=== PATIENT | female | born 1935 | race African-American/Black ===

== ENCOUNTER 2016-09-15 13:20 | Emergency (ER) | payer MEDICARE, OTHER ==
[~2016-09-15] VITALS: Ht 160 cm; Wt 79.4 kg
[2016-09-15 14:15] VITALS: BP 103/69
[2016-09-15] MEDS ORDERED: Cephalexin 500mg cap ORAL ONE (14:45)
[2016-09-15] MEDS ORDERED: CEPHALEXIN500 MG ORAL (14:49)
[2016-09-15] MEDS ORDERED: IBUPROFEN600 MG ORAL (14:49)
[2016-09-15] MEDS ORDERED: Tetanus/Diptheria/Pertussis Vaccine 0.5ml Syr IM ONE (15:00)
[2016-09-15 16:05] VITALS: BP 122/77
--- NOTE | 2016-09-15 16:07 | Emergency Room Report ---
History of Present Illness General Chief Complaint: Laceration Source: Patient Present Illness HPI The patient is an 80-year-old female presenting with laceration to the left middle finger. She states that she was using a knife in the kitchen and slipped. This occurred 2 days prior and she has not sought any medical attention. She cleaned the area with peroxide. Pain is now 5/10 dull ache it is worse with movement. She denies any numbness or tingling. She denies any recent bleeding. She denies other symptoms such as F, chills. Last tetanus shot unknown Allergies: Coded Allergies: CODEINE (Verified Allergy, Mild, 10/14/10) Patient History Past Medical History: see triage record Pertinent Family History: none Reviewed Nursing Documentation: PMH: Agreed, PSxH: Agreed Nursing Documentation-PMH Past Medical History: No History, Except For Hx Diabetes: Yes Review of Systems All Other Systems: negative except mentioned in HPI Physical Exam Vital Signs Date Time Temp Pulse Resp B/P Pulse Ox O2 Delivery O2 Flow Rate FiO2 09/15/16 13:37 97.7 71 20 103/69 97 Room Air General Appearance: no apparent distress, alert, GCS 15, non-toxic Head: normocephalic, atraumatic Eyes: bilateral eye PERRL, bilateral eye normal inspection Musculoskeletal: normal range of motion - Full AROM of L 3rd finger, tender - TTP over the laceration Neurologic: alert, oriented x3, responsive, motor strength/tone normal, sensory intact, speech normal Psychiatric: judgement/insight normal, memory normal, mood/affect normal, no suicidal/homicidal ideation Skin: laceration - 1cm linear laceration of the palmar surface of 3rd digit proximal to DIPJ Lymphatic: no adenopathy Medical Decision Making PA Attestation Dr. Norman is my supervising physician. Patient management was discussed with my supervising physician Diagnostic Impression: Primary Impression: Finger laceration Qualified Codes: S61.213A - Laceration without foreign body of left middle finger without damage to nail, initial encounter ER Course The patient is an 80-year-old female presenting with laceration to the left middle finger. Ddx considered include but not limited to fracture, tendon/ligament injury, avulsion, nerve damage, wound infection, among others PE: 1cm linear laceration of the palmar surface of 3rd digit proximal to DIPJ. Full AROM. No bleeding. No erythema. Due to to the laceration being more than 48 hours old, it will not be closed. It is already well approximated. Wound is cleaned with normal saline and Betadine and a sterile dressing applied She is given a tetanus shot She'll be discharged home with prophylactic antibiotics and needs to follow up with primary doctor. ER precautions are given Last Vital Signs Date Time Temp Pulse Resp B/P Pulse Ox O2 Delivery O2 Flow Rate FiO2 09/15/16 14:15 97.7 20 103/69 97 Room Air 09/15/16 13:37 71 Status: improved Disposition: HOME, SELF-CARE Condition: Improved Scripts Cephalexin* (KEFLEX*) 500 Mg Capsule 500 MG ORAL EVERY 12 HOURS, #14 CAP 0 Refills Prov: PAU SNYDER 09/15/16 Ibuprofen* (MOTRIN*) 600 Mg Tablet 600 MG ORAL Q8H Y for For Pain, #30 TAB 0 Refills Prov: PAU SNYDER 09/15/16 Patient Instructions: Laceration Care, Adult, Nonsutured Laceration Care Additional Instructions: I discussed my findings with the patient. All questions and concerns have been answered. Treatment and medication compliance have been addressed. I advised the patient that they need to follow up with PMD in 3-5 days. Return to ED if symptoms worsen, new symptoms arise such as fever, swelling, or redness, or if needed for any reason. Patient verbalized understanding of discharge instructions. PAU SNYDER Sep 15, 2016 16:07
== END 2016-09-15 16:05 | disposition home or self-care (01) ==
LOC: EMR 14:08
DX: S61.213A Laceration without foreign body of left middle finger without damage to nail, initial encounter (principal); W26.0XXA Contact with knife, initial encounter; Y92.010 Kitchen of single-family (private) house as the place of occurrence of the external cause; Z23 Encounter for immunization; E11.9 Type 2 diabetes mellitus without complications; Z88.6 Allergy status to analgesic agent
CPT/HCPCS: 90471; 90715; 96372; 99284

== ENCOUNTER 2016-09-28 13:20 | Emergency (ER) | payer MEDICARE, OTHER ==
[~2016-09-28] VITALS: Ht 160 cm; Wt 79.4 kg
[~2016-09-28 13:20] MED LIST: CEPHALEXIN500 MG ORAL; IBUPROFEN600 MG ORAL
[2016-09-28 14:10] VITALS: BP 116/76
[2016-09-28] MEDS ORDERED: Bacitracin Oint UD TOPIC ONE (14:30)
--- NOTE | 2016-09-28 16:14 | Diagnostic Imaging Report ---
Indications: Cephalgia Technique: Continuous helical CT imaging of the brain was performed with automatic exposure control on a Siemens sensation [address] scanner. Axial and coronal images were reconstructed at 5 mm slice thickness and interval. CTDI volume(s): 70 mGy Total DLP: 1354 mGy-cm Findings: Comparison: None Confluent low attenuation is present in the bilateral periventricular white matter. Ventricles, cisterns, and sulci are diffusely prominent. No evidence of mass or hemorrhage, mass effect, midline shift, hydrocephalus, or increased intracranial pressure. Bone window images are unremarkable. Visualized paranasal sinuses and mastoid air cells are clear. IMPRESSION: No evidence of acute intracranial pathology . Chronic microvascular ischemic changes bilateral cerebral periventricular white matter. Atrophy The CT scanner at [facility] is accredited by the [employer] and the scans are performed using protocols designed to limit radiation exposure to as low as reasonably achievable to attain images of sufficient resolution adequate for diagnostic evaluation.
[2016-09-28] MEDS ORDERED: POTASSIUM CHLO10 ME2 PO (16:29)
[2016-09-28] MEDS ORDERED: NORCO 10/3251 EA ORAL (16:29)
[2016-09-28] MEDS ORDERED: NITROSTAT0.4 M2 SL (17:00)
[2016-09-28] MEDS ORDERED: REPAGLINIDE1 MG PO (17:00)
[2016-09-28] MEDS ORDERED: JANUVIA25 MG ORAL (17:00)
[2016-09-28] MEDS ORDERED: ASPIR 8181 MG ORAL (17:00)
[2016-09-28] MEDS ORDERED: LASIX20 M1 ORAL (17:00)
[2016-09-28] MEDS ORDERED: ATORVASTATIN CA20 MG ORAL (17:00)
[2016-09-28] MEDS ORDERED: GABAPENTIN300 MG ORAL (17:00)
[2016-09-28] MEDS ORDERED: LOSARTAN POTASS50 MG ORAL (17:00)
[2016-09-28] MEDS ORDERED: OMEPRAZOLE40 M1 ORAL (17:00)
[2016-09-28] MEDS ORDERED: AMLODIPINE BESY10 MG ORAL (17:00)
[2016-09-28] MEDS ORDERED: ATENOLOL50 MG ORAL (17:00)
[2016-09-28] MEDS ORDERED: CEPHALEXIN500 MG ORAL (17:19)
[2016-09-28] MEDS ORDERED: BACITRACIN15 GM TOPIC (17:19)
[2016-09-28] MEDS ORDERED: TYLENOL EXTRA500 MG ORAL (17:19)
[2016-09-28 17:35] VITALS: BP 123/78
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
--- NOTE | 2016-09-29 11:25 | Diagnostic Imaging Report ---
Indication: pain Findings: 3 views of the left hand were obtained. Soft tissue irregularity noted about the third digit. Findings consistent with soft tissue injury/laceration. No obvious radiopaque foreign body seen. No definite fracture or malalignment. Bones are osteopenic. Impression: Soft tissue injury
== END 2016-09-28 17:37 | disposition home or self-care (01) ==
LOC: EMR 14:05
DX: S61.213A Laceration without foreign body of left middle finger without damage to nail, initial encounter (principal); Z88.6 Allergy status to analgesic agent; E11.9 Type 2 diabetes mellitus without complications; Z85.51 Personal history of malignant neoplasm of bladder; X58.XXXA Exposure to other specified factors, initial encounter; Y92.9 Unspecified place or not applicable
CPT/HCPCS: 70450; 99284

== ENCOUNTER 2018-01-22 07:47 | Inpatient (IN) | payer MEDICARE, OTHER ==
[~2018-01-22] VITALS: Ht 165.1 cm; Wt 75.7 kg
[~2018-01-22 07:47] MED LIST changes: +AMLODIPINE BESY10 MG ORAL; +ASPIR 8181 MG ORAL; +ATENOLOL50 MG ORAL; +ATORVASTATIN CA20 MG ORAL; +BACITRACIN15 GM TOPIC; +GABAPENTIN300 MG ORAL; +JANUVIA25 MG ORAL; +LASIX20 M1 ORAL; +LOSARTAN POTASS50 MG ORAL; +NITROSTAT0.4 M2 SL; +NORCO 10/3251 EA ORAL; +OMEPRAZOLE40 M1 ORAL; +POTASSIUM CHLO10 ME2 PO; +REPAGLINIDE1 MG PO; +TYLENOL EXTRA500 MG ORAL
[2018-01-22 07:58] VITALS: BP 115/65
[2018-01-22 08:51] LABS: ANION GAP 9 mmol/L (5-15); BLOOD UREA NITROGEN 30 mg/dL (7-18); CALCIUM 10.2 MG/DL (8.5-10.1); CARBON DIOXIDE 26 MMOL/L (21-32); CHLORIDE 105 MMOL/L (98-107); CREATININE 1.3 MG/DL (0.55-1.30); POTASSIUM 4.5 MMOL/L (3.5-5.1); SODIUM 140 MMOL/L (136-145)
[2018-01-22 09:04] LABS: ALANINE AMINOTRANSFERASE 23 U/L (12-78); ALBUMIN 3.3 G/DL (3.4-5.0); ALBUMIN/GLOBULIN RATIO 0.7 (1.0-2.7); ALKALINE PHOSPHATASE 77 U/L (46-116); ASPARTATE AMINO TRANSFERASE 25 U/L (15-37); BILIRUBIN,TOTAL 0.7 MG/DL (0.2-1.0); CKMB 1.4 NG/ML (0.0-3.6); CREATINE KINASE 71 U/L (26-308)
--- NOTE | 2018-01-22 09:09 | Emergency Room Report ---
History of Present Illness General Chief Complaint: Generalized Weakness Source: Patient, EMS Present Illness HPI The patient states she has a history of recurrent lightheadedness and falls. She states she was also seen here previously for intermittent sweating. She states that these symptoms are not new. She presents today because she had an episode of lightheadedness and did fall while she was in the bathroom. She states she hit her head. She also complains of back pain and abdominal pain. She complains of generalized weakness. She denies chest pain or shortness of breath. She denies palpitations. She denies fever or chills. She denies nausea or vomiting. She denies neck pain. She denies headache or blurry vision. She denies weakness. She has no other complaints. Allergies: Coded Allergies: CODEINE (Verified Allergy, Mild, 10/14/10) Patient History Past Medical History: see triage record, DM, other - Bladder CA Social History: Denies: smoking, alcohol use, drug use Last Menstrual Period: na Reviewed Nursing Documentation: PMH: Agreed; PSxH: Agreed Nursing Documentation-PMH Past Medical History: No History, Except For Hx Diabetes: Yes Hx Cancer: Yes - Bladder Review of Systems All Other Systems: negative except mentioned in HPI Physical Exam Vital Signs Date Time Temp Pulse Resp B/P (MAP) Pulse Ox O2 Delivery O2 Flow Rate FiO2 01/22/18 07:42 98.6 90 18 110/72 98 Room Air Sp02 EP Interpretation: reviewed, normal General Appearance: no apparent distress, alert, GCS 15, non-toxic Head: normocephalic, atraumatic Eyes: bilateral eye normal inspection, bilateral eye PERRL ENT: hearing grossly normal, normal pharynx, no angioedema, normal voice Neck: full range of motion, supple/symm/no masses Respiratory: chest non-tender, lungs clear, normal breath sounds, no respiratory distress, no retraction, no accessory muscle use, speaking full sentences Cardiovascular #1: regular rate, rhythm, no edema Gastrointestinal: normal bowel sounds, soft, non-distended, no guarding, no rebound, tenderness - TTP in the LLQ Rectal: deferred Musculoskeletal: back normal, gait/station normal, normal range of motion, non- tender Neurologic: alert, oriented x3, responsive, motor strength/tone normal, sensory intact, speech normal Psychiatric: judgement/insight normal, memory normal, mood/affect normal, no suicidal/homicidal ideation Skin: normal color, no rash, warm/dry, well hydrated Medical Decision Making Diagnostic Impression: Primary Impression: Pyelonephritis Additional Impressions: Fall Compression fracture of L1 lumbar vertebra Compression fracture of L2 ER Course This patient has pyelonephritis. The patient has had 2 falls and given the patient's age I am concerned this patient could decline rapidly. She is given broad-spectrum antibiotics and IV fluids here in the emergency department. The patient also underwent CT of the head, C-spine, T-spine and L-spine. The patient does have compression fracture deformities of L1 and L2. According to the CT report, the acuity is indeterminate. The patient may need to undergo rehabilitation. Given the patient's age, I felt that this patient should be admitted for treatment with IV antibiotics and close monitoring and possible evaluation for rehabilitation for her lumbar spine fractures. Laboratory Tests Test 01/22/18 08:25 01/22/18 09:25 White Blood Count 17.6 K/UL (4.8-10.8) H Red Blood Count 4.09 M/UL (4.20-5.40) L Hemoglobin 11.4 G/DL (12.0-16.0) L Hematocrit 34.2 % (37.0-47.0) L Mean Corpuscular Volume 84 FL (80-99) Mean Corpuscular Hemoglobin 27.9 PG (27.0-31.0) Mean Corpuscular Hemoglobin Concent 33.4 G/DL (32.0-36.0) Red Cell Distribution Width 14.9 % (11.6-14.8) H Platelet Count 302 K/UL (150-450) Mean Platelet Volume 6.8 FL (6.5-10.1) Neutrophils (%) (Auto) % (45.0-75.0) Lymphocytes (%) (Auto) % (20.0-45.0) Monocytes (%) (Auto) % (1.0-10.0) Eosinophils (%) (Auto) % (0.0-3.0) Basophils (%) (Auto) % (0.0-2.0) Differential Total Cells Counted 100 Neutrophils % (Manual) 91 % (45-75) H Lymphocytes % (Manual) 5 % (20-45) L Monocytes % (Manual) 3 % (1-10) Eosinophils % (Manual) 1 % (0-3) Basophils % (Manual) 0 % (0-2) Band Neutrophils 0 % (0-8) Platelet Estimate Adequate Platelet Morphology Normal Prothrombin Time 10.0 SEC (9.30-11.50) Prothrombin Time INR 0.9 (0.9-1.1) PTT 28 SEC (23-33) Sodium Level 140 MMOL/L (136-145) Potassium Level 4.5 MMOL/L (3.5-5.1) Chloride Level 105 MMOL/L (98-107) Carbon Dioxide Level 26 MMOL/L (21-32) Anion Gap 9 mmol/L (5-15) Blood Urea Nitrogen 30 mg/dL (7-18) H Creatinine 1.3 MG/DL (0.55-1.30) Estimate Glomerular Filtration Rate mL/min (>60) Glucose Level 162 MG/DL (74-106) H Calcium Level 10.2 MG/DL (8.5-10.1) H Total Bilirubin 0.7 MG/DL (0.2-1.0) Aspartate Amino Transferase (AST) 25 U/L (15-37) Alanine Aminotransferase (ALT) 23 U/L (12-78) Alkaline Phosphatase 77 U/L (46-116) Total Creatine Kinase 71 U/L (26-308) Creatine Kinase MB 1.4 NG/ML (0.0-3.6) Creatine Kinase MB Relative Index 1.9 Troponin I 0.017 ng/mL (0.000-0.056) Total Protein 7.9 G/DL (6.4-8.2) Albumin 3.3 G/DL (3.4-5.0) L Globulin 4.6 g/dL Albumin/Globulin Ratio 0.7 (1.0-2.7) L Urine Color Pale yellow Urine Appearance Clear Urine pH 6 (4.5-8.0) Urine Specific [place] 1.010 (1.005-1.035) Urine Protein 2+ (NEGATIVE) H Urine Glucose (UA) Negative (NEGATIVE) Urine Ketones Negative (NEGATIVE) Urine Blood 1+ (NEGATIVE) H Urine Nitrite Positive (NEGATIVE) H Urine Bilirubin Negative (NEGATIVE) Urine Urobilinogen Normal MG/DL (0.0-1.0) Urine Leukocyte Esterase 2+ (NEGATIVE) H Urine RBC 0-2 /HPF (0 - 2) Urine WBC 10-15 /HPF (0 - 2) H Urine Squamous Epithelial Cells Few /LPF (NONE/OCC) Urine Bacteria Many /HPF (NONE) H EKG Diagnostic Results Rate: normal Rhythm: NSR ST Segments: no acute changes Rhythm Strip Diag. Results EP Interpretation: yes Rate: 90's Rhythm: NSR, no PVC's, no ectopy CT/MRI/US Diagnostic Results CT/MRI/US Diagnostic Results : Imaging Test Ordered: CT head, C-spine, T-spine, L-spine. Impression See official reports in the electronic medical record. All were unremarkable for acute findings except for the CT lumbar spine which shows compression fractures of L1 and L2 vertebrae. Last Vital Signs Date Time Temp Pulse Resp B/P (MAP) Pulse Ox O2 Delivery O2 Flow Rate FiO2 01/22/18 07:58 99 18 Room Air 01/22/18 07:58 98.6 115/65 99 Disposition: ADMITTED INPATIENT Condition: Serious Referrals: NOT CHOSEN IPA/,REFERRING (PCP) Lauren Mcneill DO Jan 22, 2018 09:09
[2018-01-22 09:14] LABS: INR 0.9 (0.9-1.1)
[2018-01-22 09:17] LABS: HEMATOCRIT 34.2 % (37.0-47.0); HEMOGLOBIN 11.4 G/DL (12.0-16.0); MEAN CORPUSCULAR VOLUME 84 FL (80-99); PLATELET COUNT 302 K/UL (150-450); RED BLOOD COUNT 4.09 M/UL (4.20-5.40); RED CELL DISTRIBUTION WIDTH 14.9 % (11.6-14.8); WHITE BLOOD COUNT 17.6 K/UL (4.8-10.8)
--- NOTE | 2018-01-22 09:30 | Diagnostic Imaging Report ---
Indication: Shortness of breath Technique: One view of the chest Comparison: 11/17/2004 Findings: No acute infiltrates, effusions, or congestion. Tortuous calcified aorta. Normal heart size. Upper mediastinum unremarkable. No significant change Impression: No acute process.
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
[2018-01-22 09:43] LABS: APPEARANCE,URINE CLEAR; BILIRUBIN, URINE NEGATIVE (NEGATIVE); COLOR,URINE PALE YELLOW; GLUCOSE, URINE (UA) NEGATIVE (NEGATIVE); KETONES,URINE NEGATIVE (NEGATIVE); LEUKOCYTE ESTERASE ,URINE 2+ (NEGATIVE); NITRITE,URINE POSITIVE (NEGATIVE); PH,URINE 6 (4.5-8.0); PROTEIN,URINE 2+ (NEGATIVE); UROBILINOGEN,URINE NORMAL MG/DL (0.0-1.0)
--- NOTE | 2018-01-22 09:45 | Diagnostic Imaging Report ---
Indication: Trauma with spine pain Technique: Spiral acquisitions obtained through the cervical spine. No IV contrast utilized. Multiplanar reconstructions were generated. Total dose length product 420.62 mGycm. CTDIvol(s) 20.35 mGy. Dose reduction achieved using automated exposure control. Comparison: none Findings: There is slight image degradation due to motion artifact There is slight reversal of the normal cervical lordosis. Is slight anterior offset of C4 on C5, presumably due to facet arthrosis. Otherwise normal bony alignment. There is fusion, presumably surgical, of the C5, C6, and C7 vertebral bodies. There is degenerative narrowing of the anterior atlantoaxial joint At C2-3, there is broad-based central posterior disc protrusion. This does not result in any significant canal stenosis. At C3-4, there is broad-based central posterior disc protrusion. This results in borderline narrowing of the spinal canal. The neural foramina are preserved. At C4-5, no significant disc bulge or protrusion or spinal stenosis. There is mild to moderate narrowing of the left neural foramen due to facet arthrosis. There is also facet arthrosis on the right. At C5-6, the disc is fused. No significant disc bulge or protrusion or spinal stenosis. At C6-7, the disc is fused. No significant disc bulge or protrusion or spinal stenosis. There is minimal left and mild right neural foraminal stenosis. At C7-T1, there is degenerative disc narrowing. There is moderate bilateral neural foraminal stenosis. No significant disc bulge or protrusion or spinal stenosis. There is abnormal appearance of the left mandibular neck. The appearance is suggestive of motion artifact. There is slightly similar but less striking finding on the contralateral side. The included extra spinal soft tissues are grossly unremarkable. The upper aerodigestive tract is unremarkable Impression: No acute bony trauma Degenerative changes as detailed on a level by level basis above Apparent abnormality of the right mandibular neck. Most on the basis of motion artifact. However, correlation with clinical findings is recommended to exclude mandibular neck fracture. The CT scanner at [facility] is accredited by the [employer] and the scans are performed using protocols designed to limit radiation exposure to as low as reasonably achievable to attain images of sufficient resolution adequate for diagnostic evaluation.
[2018-01-22 09:47] VITALS: BP 135/62
--- NOTE | 2018-01-22 09:50 | Diagnostic Imaging Report ---
Indications: Trauma, back pain Technique: Spiral acquisitions obtained through the lumbar spine. Multiplanar reconstructions were generated. No IV contrast utilized. Total dose length product 417.47 mGycm. CTDIvol(s) 14.88 mGy. Dose reduction achieved using automated exposure control Comparison: none Findings: There is an inferior endplate/wedge compression fracture deformity of the L2 vertebral body. This results in approximately 40% height abdominal anteriorly loss. There is very slight posterior retropulsion of the posterior wall. No definite acute fracture line or paraspinous edema. There is also very slight loss of height of the L1 vertebral body anteriorly, with questionably a tiny cortical break anteriorly. Height loss is estimated 10-20%. No significant paraspinous edema. The remaining vertebral body heights are preserved. The bony alignment is normal except for very slight loss of the normal lumbar lordosis at L2-3 related to the compression injury. The remaining vertebral body heights are preserved. No other acute fractures. At L2-3, there is mild circumferential annular bulge. Despite this and the slight retropulsion, there is no significant spinal stenosis or neural foraminal compromise. There is circumferential annular bulge at L4-5. This, in combination with ligament flavum hypertrophy, results in borderline narrowing of the spinal canal. There is mild neural foraminal narrowing bilaterally, predominantly due to the bulging disc. There is bilateral facet arthrosis. At the remaining disc levels, no significant disc bulge or protrusion, spinal stenosis, or neural foraminal narrowing. There is facet arthrosis at L4-5 and L5-S1 bilaterally Included extra spinal soft tissues are unremarkable. Impression: Positive for compression fracture deformities of L1 and L2, acuity indeterminate. Consider MRI for better characterization of acuity if clinically relevant No other acute bony trauma Mild degenerative changes, as described The CT scanner at [facility] is accredited by the [employer] and the scans are performed using protocols designed to limit radiation exposure to as low as reasonably achievable to attain images of sufficient resolution adequate for diagnostic evaluation.
--- NOTE | 2018-01-22 10:09 | Diagnostic Imaging Report ---
Indication: Pain, status post trauma Technique: Spiral acquisitions obtained through the thoracic spine. No IV contrast utilized. Multiplanar reconstructions were generated. Total dose length product 887 mGycm. CTDIvol(s) 24.82 mGy. Dose reduction achieved using automated exposure control Comparison: none Findings: There is some image degradation due to motion artifact. The bony alignment is normal. The vertebral body heights are preserved. The disc spaces are preserved. No acute fractures. No dislocations. There are mild degenerative proliferative changes noted. No significant disc bulge or protrusion, spinal stenosis, or neural foraminal stenosis is demonstrated. Incidentally noted are posterior dependent atelectatic changes at the lung bases. The included extraspinal soft tissues are otherwise unremarkable. Impression: No acute bony trauma Minimal degenerative changes, as described The CT scanner at [facility] is accredited by the [employer] and the scans are performed using protocols designed to limit radiation exposure to as low as reasonably achievable to attain images of sufficient resolution adequate for diagnostic evaluation.
[2018-01-22] MEDS ORDERED: cefTRIAXone 1 GM in NS 55 ML IVPB ONE (11:00)
[2018-01-22 11:31] VITALS: BP 142/82
[2018-01-22] MEDS ORDERED: Acetaminophen 500mg (ES) tab ORAL ONE (12:15)
[2018-01-22 13:02] VITALS: BP 145/79
[2018-01-22 16:00] VITALS: BP 128/71
[2018-01-22] MEDS ORDERED: NovoLOG Insulin Flexpen SUBQ SCH (16:50)
[2018-01-22] MEDS: Norco 5mg/325mg tab ORAL PRN (18:27)
[2018-01-22] MEDS: Piperacillin/Tazobactam 3.375 GM in D5W 110 ML IVPB SCH (18:28)
[2018-01-22 20:00] VITALS: BP 113/67
[2018-01-22] MEDS: NovoLOG Insulin Flexpen SUBQ SCH (20:55)
[2018-01-22] MEDS: Heparin 5000 units/ml inj SUBQ SCH (20:55)
--- NOTE | 2018-01-22 21:15 | History and Physical Report ---
DATE OF ADMISSION: 01/22/2018 REASON FOR ADMISSION: Urinary tract infection with sepsis. HISTORY OF PRESENT ILLNESS: This is an 82-year-old female, who presented to the emergency room today after sustaining a fall in the bathroom. She says that she went to the bathroom at night. Her caregiver was not with her at that time as she is only present for 5 hours during the day. The patient says that she felt her head spinning and fell to the ground. She thinks she hit her head, but she did not lose consciousness. She was unable to get up because of back pain until the morning. She denied any shortness of breath, chest pain, focal weakness, palpitations, nausea, vomiting, or dysuria. She was seen in the emergency room where imaging studies of the head and spine were obtained notable only for diffuse white matter disease and an L2-L3 compression fracture, acuity unknown. Urine studies were suggestive of an acute urinary tract infection and there was evidence of significant leukocytosis with left shift. PAST MEDICAL HISTORY: Includes type 2 diabetes mellitus, history of bladder cancer, hypertensive heart disease, hyperlipidemia, osteoarthritis, degenerative disk disease, and history of recurrent falls. ALLERGIES: Include codeine although she takes hydrocodone at home. SOCIAL HISTORY: Negative for smoking, alcohol, or substance abuse. She is a retired [employer]. FAMILY HISTORY: Noncontributory. MEDICATIONS: Prior to admission, reviewed and reconciled. REVIEW OF SYSTEMS: No fevers or chills. No loss of vision. No history of retinopathy. She has had cataract surgery. No loss of hearing. She has a history of bladder cancer. She is not incontinent. She is unclear about the status although thinks it is clear. No history of seizure or stroke. 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 There is no history of kidney failure. She has not noted any change in bowel habits. There is no history of asthma or blood clotting in the legs. She denies history of heart attack. She does have high blood pressure. She is on a few medications. She also takes a water pill. She does not think she has any history of heart failure. PHYSICAL EXAMINATION: GENERAL: Well developed, well nourished, no acute distress. VITAL SIGNS: Afebrile, blood pressure 110/72, pulse 90, and respirations 18. HEENT: Normocephalic and atraumatic. Conjunctivae pink. Oropharynx clear. Mucous membranes moist. NECK: Supple. Jugular venous pressure normal. LUNGS: Clear. CARDIAC: Regular rhythm and rate. Normal S1, S2. There is a fourth heart sound. No appreciated murmur. ABDOMEN: Soft and nontender. No focal tenderness, guarding, or rebound. EXTREMITIES: Good pulses. No clubbing or cyanosis. No edema. There is no CVA tenderness. There is no bony deformities of the spine. NEUROLOGIC: Reveals symmetric strength. IMPRESSION: 1. Urinary tract infection with sepsis. 2. Recurring falls. 3. Lumbar compression fractures, acuity unclear. 4. Type 2 diabetes mellitus with neuropathy. 5. Leukocytosis. 6. Prerenal azotemia. 7. Dehydration. 8. Hypovolemia. PLAN: 1. Panculture. 2. Empiric antibiotics. 3. Cautious hydration with IV fluids. 4. Hold diuretics. 5. Stepwise titration of antihypertensives. 6. Insulin coverage by sliding scale. Hold oral hypoglycemic agents at this time. 7. Consider further imaging of the spine to assess acuity of compression fractures. 8. Physical therapy assessment. 9. Further diagnostic studies will follow depending on clinical course. Lavon Almendarez M.D. DR: SABRINA JOB#: [id number] CC:
[2018-01-23] VITALS: BP 146/76
[2018-01-23 04:00] VITALS: BP 149/78
[2018-01-23] MEDS: Piperacillin/Tazobactam 3.375 GM in D5W 110 ML IVPB SCH ×3 (04:32→20:58)
[2018-01-23] MEDS: NovoLOG Insulin Flexpen SUBQ SCH ×4 (06:03→20:59)
[2018-01-23 07:15] LABS: BASOPHILS % (AUTO) 0.3 % (0.0-2.0); HEMATOCRIT 31.5 % (37.0-47.0); HEMOGLOBIN 10.5 G/DL (12.0-16.0); LYMPHOCYTES % (AUTO) 8.4 % (20.0-45.0); MEAN CORPUSCULAR VOLUME 83 FL (80-99); MONOCYTES % (AUTO) 7.8 % (1.0-10.0); NEUTROPHILS % (AUTO) 81.4 % (45.0-75.0); PLATELET COUNT 292 K/UL (150-450); RED BLOOD COUNT 3.78 M/UL (4.20-5.40); WHITE BLOOD COUNT 12.3 K/UL (4.8-10.8)
[2018-01-23 08:00] VITALS: BP 147/70
[2018-01-23 08:06] LABS: ALANINE AMINOTRANSFERASE 30 U/L (12-78); ALBUMIN 2.5 G/DL (3.4-5.0); ALBUMIN/GLOBULIN RATIO 0.6 (1.0-2.7); ALKALINE PHOSPHATASE 84 U/L (46-116); ANION GAP 10 mmol/L (5-15); ASPARTATE AMINO TRANSFERASE 64 U/L (15-37); BILIRUBIN,TOTAL 0.7 MG/DL (0.2-1.0); BLOOD UREA NITROGEN 18 mg/dL (7-18); CALCIUM 9.4 MG/DL (8.5-10.1); CARBON DIOXIDE 22 MMOL/L (21-32); CHLORIDE 109 MMOL/L (98-107); CREATININE 0.9 MG/DL (0.55-1.30); SODIUM 141 MMOL/L (136-145)
[2018-01-23] MEDS: Norco 5mg/325mg tab ORAL PRN (08:24)
[2018-01-23] MEDS: Losartan 50mg tab ORAL SCH (08:25)
[2018-01-23] MEDS: Aspirin Baby 81mg ORAL SCH (08:25)
[2018-01-23] MEDS: Heparin 5000 units/ml inj SUBQ SCH ×2 (08:33→20:59)
[2018-01-23 11:49] VITALS: BP 129/71
[2018-01-23 16:00] VITALS: BP 137/71
--- NOTE | 2018-01-23 16:02 | Cardiology Report ---
APPROVED REPORT EKG Measurement Heart [id number] Normal sinus rhythm Minimal voltage criteria for LVH, may be normal variant Nonspecific T wave abnormality Abnormal ECG
[2018-01-23 20:00] VITALS: BP 140/65
[2018-01-23] MEDS: Zolpidem 5mg tab ORAL PRN (22:48)
--- NOTE | 2018-01-23 23:30 | Progress Note ---
DATE: 01/23/2018 INTERNAL MEDICINE PROGRESS NOTE SUBJECTIVE: The patient still has back pain. She complains of pain from her neck even radiating to her scalp and down to her lower back. She was able to ambulate with some assist.. PHYSICAL EXAMINATION: VITAL SIGNS: Blood pressure 129/71, pulse 76, respiratory rate 20, temperature 99. LUNGS: Clear. CARDIAC: Regular. Normal S1 and S2. Fourth heart sound. ABDOMEN: Soft. No edema. LABORATORY AND DIAGNOSTIC DATA: Urine culture is positive for gram-negative bacillus. Sodium 141, potassium 5, bicarb 22, chloride 109, BUN 18, creatinine 0.9, albumin 2.5. White count 12.3, hemoglobin 10.5. IMPRESSION: 1. Gram-negative urinary tract infection with sepsis. 2. Leukocytosis, improved. 3. Moderate to severe protein-calorie malnutrition. 4. Hypovolemia. 5. Dehydration, improving. 6. Prerenal azotemia, resolving. 7. Recurring falls. 8. Degenerative disk disease. 9. Compression fractures of unclear acuity. PLAN: 1. Antimicrobials. 2. Await final cultures. 3. Adjust intravenous fluids. 4. Protein supplement. 5. Bone scan. 6. Physical and occupational therapy assessments. Lavon Almendarez M.D. DR: Zackery JOB#: [id number] CC:
[2018-01-24] VITALS (7 sets, daily range): BP systolic 125–152; BP diastolic 60–75
[2018-01-24] MEDS: Piperacillin/Tazobactam 3.375 GM in D5W 110 ML IVPB SCH ×2 (04:08→15:57)
[2018-01-24] MEDS: Norco 5mg/325mg tab ORAL PRN ×2 (04:08→20:46)
[2018-01-24] MEDS: NovoLOG Insulin Flexpen SUBQ SCH ×4 (06:30→20:50)
[2018-01-24] MEDS: Losartan 50mg tab ORAL SCH (09:49)
[2018-01-24] MEDS: Aspirin Baby 81mg ORAL SCH (09:49)
[2018-01-24] MEDS: Heparin 5000 units/ml inj SUBQ SCH ×2 (09:51→20:49)
--- NOTE | 2018-01-24 14:58 | Diagnostic Imaging Report ---
Indication: Back pain, recent trauma due to fall 3 days earlier, history of bladder cancer Technique: IV administration 25.3 mCi 99 M technetium MDP. Whole body and spot images were obtained. Comparison: Reference made to lumbar spine CT dated 01/22/2018 Findings:Minimal increased activity in the left lower lumbar spine presumably reflects facet arthrosis is evident on recent CT. No other abnormal foci of increased uptake are demonstrated. No increased upper lumbar vertebral uptake is demonstrated. Photopenic area in the right knee is consistent with a knee arthroplasty. Normal renal and bladder activity demonstrated. Prominent bilateral extrarenal pelves are noted, as well as suggestion of some hang-up tracer in the right mid ureter. A linear band of increased activity extends lateral to the left kidney on the posterior images. Suspect that this is artifactual. Impression: No abnormal uptake corresponding to the location of the L1 and L2 vertebral body compression fractures described on recent CT scan. This indicates that these fractures are not acute Minimal increased activity in the lower lumbar spine corresponding to degenerative changes Photopenic area in the right knee is consistent with a knee prosthesis
[2018-01-24] MEDS: ceFAZolin sod 1 GM in D5W 55 ML IVPB SCH (20:48)
[2018-01-24] MEDS: Zolpidem 5mg tab ORAL PRN (21:36)
[2018-01-25 00:34] VITALS: BP 141/77
--- NOTE | 2018-01-25 00:45 | Progress Note ---
DATE: 01/24/2018 INTERNAL MEDICINE PROGRESS NOTE SUBJECTIVE: The patient has back pain has improved. She was able to mobilize. She has been taking pain medications during the day and night as well to sleep. The bone scan revealed no uptake in the spine suggesting the fractures are old and the patient recalls on dating back over 10 years. The patient's urine culture is positive for E. coli with sensitivity to all antibiotics. OBJECTIVE: VITAL SIGNS: Blood pressure 146/74, pulse 72, respirations 18, and oxygen saturations are 97%. LUNGS: Clear. CARDIAC: Regular. Normal S1, S2. ABDOMEN: Soft. No CVA tenderness. EXTREMITIES: No edema. Good distal pulses. IMPRESSION: 1. Escherichia coli urinary tract infection with sepsis, improving. 2. Hypovolemia and dehydration, corrected. 3. Hypertensive heart disease. 4. Type 2 diabetes mellitus. 5. Prior compression fractures. 6. Recurring falls likely due to overdiuresis from diuretic therapy. PLAN: 1. No antibiotic spectrum. 2. Taper off IV fluids. 3. Mobilize discharge planning. 4. No resumption of diuretic presently planned. Lavon Almendarez M.D. DR: SUHAS JOB#: [id number] CC:
[2018-01-25 04:00] VITALS: BP 141/73
[2018-01-25] MEDS: NovoLOG Insulin Flexpen SUBQ SCH ×4 (05:51→21:00)
[2018-01-25 06:45] LABS: BASOPHILS % (AUTO) 0.3 % (0.0-2.0); EOSINOPHILS % (AUTO) 2.1 % (0.0-3.0); HEMATOCRIT 31.6 % (37.0-47.0); HEMOGLOBIN 10.4 G/DL (12.0-16.0); LYMPHOCYTES % (AUTO) 19.6 % (20.0-45.0); MEAN CORPUSCULAR VOLUME 85 FL (80-99); MONOCYTES % (AUTO) 13.6 % (1.0-10.0); NEUTROPHILS % (AUTO) 64.3 % (45.0-75.0); PLATELET COUNT 251 K/UL (150-450); RED BLOOD COUNT 3.73 M/UL (4.20-5.40); RED CELL DISTRIBUTION WIDTH 14.6 % (11.6-14.8); WHITE BLOOD COUNT 9.4 K/UL (4.8-10.8)
[2018-01-25 07:06] LABS: ALANINE AMINOTRANSFERASE 25 U/L (12-78); ALBUMIN 2.5 G/DL (3.4-5.0); ALBUMIN/GLOBULIN RATIO 0.6 (1.0-2.7); ALKALINE PHOSPHATASE 78 U/L (46-116); ANION GAP 7 mmol/L (5-15); ASPARTATE AMINO TRANSFERASE 22 U/L (15-37); BILIRUBIN,TOTAL 0.2 MG/DL (0.2-1.0); BLOOD UREA NITROGEN 9 mg/dL (7-18); CALCIUM 8.9 MG/DL (8.5-10.1); CARBON DIOXIDE 24 MMOL/L (21-32); CHLORIDE 107 MMOL/L (98-107); CREATININE 0.9 MG/DL (0.55-1.30); POTASSIUM 3.7 MMOL/L (3.5-5.1); SODIUM 138 MMOL/L (136-145)
[2018-01-25 08:29] VITALS: BP 134/67
[2018-01-25] MEDS: Aspirin Baby 81mg ORAL SCH (08:45)
[2018-01-25] MEDS: Losartan 50mg tab ORAL SCH (08:46)
[2018-01-25] MEDS: Heparin 5000 units/ml inj SUBQ SCH ×2 (08:54→22:21)
[2018-01-25] MEDS: ceFAZolin sod 1 GM in D5W 55 ML IVPB SCH ×2 (08:57→22:23)
[2018-01-25 12:00] VITALS: BP 141/75
[2018-01-25] MEDS: Norco 5mg/325mg tab ORAL PRN (15:57)
[2018-01-25 16:00] VITALS: BP 145/85
[2018-01-25 20:00] VITALS: BP 138/78
[2018-01-25] MEDS: Zolpidem 5mg tab ORAL PRN (22:23)
[2018-01-26] VITALS: BP 148/72
--- NOTE | 2018-01-26 01:45 | Progress Note ---
INTERNAL MEDICINE PROGRESS NOTE DATE: 01/25/2018 SUBJECTIVE: The patient remains on antibiotics. She has no dizziness or loss of consciousness and is ambulating well. She has remained on diuretics since admission. OBJECTIVE: VITAL SIGNS: Blood pressure 145/85, pulse 68, and respirations 19. NECK: Supple. LUNGS: Clear. CARDIAC: Regular. Normal S1, S2 with a fourth heart sound. ABDOMEN: Soft. EXTREMITIES: No edema. IMPRESSION: 1. Hypovolemia and dehydration due to diuretics, resolved. 2. Recurring falls, multifactorial as outlined yesterday. 3. Urinary tract infection, on intravenous antimicrobials. PLAN: 1. Continue current antibiotics. 2. Optimize blood pressure and blood glucose control with medication titration. 3. Discontinue IV fluids. 4. Discharge plan tomorrow. Lavon Almendarez M.D. DR: KENDY JOB#: [id number] CC:
[2018-01-26 04:00] VITALS: BP 144/74
[2018-01-26] MEDS: Norco 5mg/325mg tab ORAL PRN (04:18)
[2018-01-26] MEDS: NovoLOG Insulin Flexpen SUBQ SCH ×2 (06:30→11:30)
[2018-01-26 08:00] VITALS: BP 152/68
[2018-01-26 09:59] VITALS: BP 143/72
[2018-01-26] MEDS: ceFAZolin sod 1 GM in D5W 55 ML IVPB SCH (10:13)
[2018-01-26] MEDS: Aspirin Baby 81mg ORAL SCH (10:13)
[2018-01-26] MEDS: Losartan 50mg tab ORAL SCH (10:13)
[2018-01-26] MEDS: Heparin 5000 units/ml inj SUBQ SCH (10:16)
[2018-01-26 12:00] VITALS: BP 157/73
[2018-01-26] MEDS ORDERED: Cephalexin 250mg Cap ORAL SCH (13:00)
--- NOTE | 2018-01-28 09:52 | Discharge Summary ---
Shahnaz Brothers CARMELO 01/28/18 0952: Discharge Summary Discharge Summary _ DATE OF ADMISSION: 01/22/2018 DATE OF DISCHARGE: 01/26/2018 DISCHARGED BY: REASON FOR ADMISSION: 82 years old female with past medical history of diabetes mellitus, HTN, bladder cancer , recurrent lightheadedness and falls, presented to emergency department with new episode of lightheadedness and fall . Patient reported that she fell out while she was in the bathroom . She reported hitting her head. Patient also complained of abdominal and back pain. Patient complained of generalized weakness. She denied chest pain or shortness of breath. She denied palpitations. She denied fever and chills. She denied nausea and vomiting. She denies neck pain neck pain headache or blurry vision. Upon evaluation vital signs are stable CT of the head revealed chronic age-related changes but was negative for acute intracranial bleeding or mass-effect. CT of the lumbar spine revealed compression fracture of L1-L2 acute undetermined. No other acute bony trauma. Mild degenerative changes. CT of T-spine revealed no acute bony trauma, minimal degenerative changes. Chest x-ray revealed no acute cardiopulmonary process. Laboratory workup revealed leukocytosis WBC 17.6, hemoglobin 11.4, hematocrit 34.2. Stable electrolytes. BUN 30. Creatinine 1.3. Glucose 162. Troponin negative. EKG revealed sinus rhythm, no acute ischemic change. Urinalysis was positive for nitrate, +2 leukocyte esterase ,pyuria and many bacteria. Patient admitted with sepsis with urinary tract infection , recurrent falls, lumbar compression fracture acuity unclear ,type 2 diabetes mellitus with neuropathy, leukocytosis, prerenal azotemia, dehydration and hypovolemia. HOSPITAL COURSE: Patient admitted, pancultured and started on empiric antibiotics. Urine culture revealed E. coli , antibiotic regimen h optimized based on culture. . Leukocytosis resolved prior to discharge, no fevers. Patient started on cautious hydration with IV fluids with close monitoring of electrolytes and renal parameters. Electrolytes corrected as needed. Nephrotoxins were avoided. Diuretics were on hold. Prior to discharge BUN 9 creatinine 0.9. Antihypertensive medication regimen was provided with a stepwise titration to keep blood pressure under control. Blood sugar was managed with sliding scale of insulin. Oral hypoglycemic were on hold at that time. Hemoglobin A1c 7.0 -at goal. CT of C-spine revealed no acute bony trauma. Degenerative changes noted. Bone scan of the whole body revealed no abnormal uptake corresponding to the location of the L1 and L2 vertebral body compression fracture, described on recent CT scan., indicating that these fractures were not acute. Patient started to work with the physical therapists. Fall precautions were maintained. Protein supplements provided Patient clinically stabilized. Leukocytosis resolved. Stable renal parameters. No lightheadedness. No resumption of diuretic therapy was planned. Patient was stable for discharge home. FINAL DIAGNOSES: Sepsis UTI with E. coli Dehydration with hypovolemia secondary to diuretic Hypertensive heart disease Type 2 diabetes mellitus Prior compression fracture Recurrent falls ,likely due to overdiuresis from diuretic therapy Degenerative disc disease Moderate to severe protein calorie malnutrition DISCHARGE MEDICATIONS: List of medication was sent with patient DISCHARGE INSTRUCTIONS: Patient was discharged home. Follow up with primary care provider in one week. I have been assigned to dictate discharge summary for this account. I was not involved in the patient's management. Lavon Almendarez MD 01/29/18 0205: Discharge Summary Discharge Summary _ I personally examined the patient and discussed the discharge diagnosis and plan of care with her. Shahnaz Brothers NP Jan 28, 2018 09:52 Lavon Almendarez MD Jan 29, 2018 02:05
--- NOTE | 2018-01-29 08:28 | Cardiology Report ---
APPROVED REPORT EXAM: Two-dimensional and M-mode echocardiogram with Doppler and color Doppler. INDICATION Congestive Heart Failure M-Mode DIMENSIONS IVSd1.2 (0.7-1.1cm)Left Atrium (MM)3.8 (1.6-4.0cm) LVDd4.7 (3.5-5.6cm)Aortic Root3.1 (2.0-3.7cm) PWd1.2 (0.7-1.1cm)Aortic Cusp Exc.1.8 (1.5-2.0cm) LVDs3.4 (2.5-4.0cm) PWs1.5 cm Normal left ventricular chamber size, systolic function and wall motion. Left ventricular ejection fraction estimated to be 60 %. Mild left ventricular hypertrophy. Anterior Echo-free space, may be due to pericardial fat or effusion. All other cardiac chamber sizes are within normal limits. Mild focal aortic valve sclerosis with adequate cusp excursion. Mildly thickened mitral valve leaflets with normal excursion. Mild mitral annulus and aortic root calcification. Normal pulmonic valve structure. Normal tricuspid valve structure. IVC dilated at 2.2 cm with physiological collapse. suggestive of increased RA pressure. A color flow and spectral Doppler study was performed and revealed: No aortic insufficiency. Mild to moderate mitral regurgitation. Mitral inflow velocities indicates possible pseudo normalization pattern implying significant left ventricular diastolic dysfunction (Grade II). Mild to moderate tricuspid regurgitation. Tricuspid systolic velocities suggests peak right ventricular systolic pressure of 57 mmHg, consistent with moderate pulmonary hypertension. No pulmonic regurgitation present.
== END 2018-01-26 17:50 | disposition home health service (06) | DRG 871 ==
LOC: EDBD 07:47 → EMR 08:35 → EDBEDREQ 11:02 → 4E 11:02 → UNDOADMIN 11:20 → EDBEDREQ 12:02
DX: A41.9 Sepsis, unspecified organism (principal); E43 Unspecified severe protein-calorie malnutrition; N39.0 Urinary tract infection, site not specified; Z88.6 Allergy status to analgesic agent; Z85.51 Personal history of malignant neoplasm of bladder; I11.9 Hypertensive heart disease without heart failure; E78.5 Hyperlipidemia, unspecified; M19.90 Unspecified osteoarthritis, unspecified site; R29.6 Repeated falls; E11.40 Type 2 diabetes mellitus with diabetic neuropathy, unspecified; E86.0 Dehydration; E86.1 Hypovolemia; B96.20 Unspecified Escherichia coli [E. coli] as the cause of diseases classified elsewhere; S32.009D Unspecified fracture of unspecified lumbar vertebra, subsequent encounter for fracture with routine healing; X58.XXXD Exposure to other specified factors, subsequent encounter; Z68.28 Body mass index [BMI] 28.0-28.9, adult
CPT/HCPCS: 36415; 70450; 71045; 72125; 72128; 72131; 78306; 80053; 81003; 82550; 82553; 82962; 83036; 83880; 84443; 84484; 85007; 85025; 85610; 85730; 87086; 87181; 93005; 93306; 96361; 96365; 99285; J1815

== ENCOUNTER 2018-09-03 21:21 | Emergency (ER) | payer MEDICARE, OTHER ==
[~2018-09-03] VITALS: Ht 160 cm; Wt 77.6 kg
--- NOTE | 2018-09-03 21:31 | NUR ---
ED Nurse Note: Pt RICK from home RA [id number], pt c/o generalized weakness for several days, denies pain or SOB. PT VSS, A&Ox4, ambulating with cane.
[2018-09-03 21:59] VITALS: BP 122/77
--- NOTE | 2018-09-03 22:03 | Emergency Room Report ---
History of Present Illness General Chief Complaint: Generalized Weakness Source: Patient Present Illness HPI Is an 82-year-old female who has a history of hypertension and diabetes. She presents with generalized weakness for about 2 weeks now. No chest pain. No nausea no vomiting. Eating normally. No dysuria frequency. She says she felt tired. Denies any other complaint. Allergies: Coded Allergies: CODEINE (Verified Allergy, Mild, 10/14/10) IBUPROFEN (Unverified Allergy, Unknown, 09/03/18) Patient History Past Medical History: see triage record, old chart reviewed, DM, HTN Past Surgical History: other Pertinent Family History: none Social History: Denies: smoking Last Menstrual Period: UNK Now: No Immunizations: other Reviewed Nursing Documentation: PMH: Agreed; PSxH: Agreed Nursing Documentation-PMH Past Medical History: No History, Except For Hx Cardiac Problems: Yes Hx Hypertension: Yes Hx Diabetes: Yes Hx Cancer: Yes Hx Gastrointestinal Problems: Yes Hx Neurological Problems: No Review of Systems Constitutional: Reports: weakness Eye: Denies: eye pain, blurred vision ENT: Denies: ear pain, nose congestion, throat swelling Respiratory: Denies: cough, shortness of breath Cardiovascular: Denies: chest pain, palpitations Gastrointestinal: Denies: abdominal pain, diarrhea, nausea, vomiting Musculoskeletal: Denies: back pain, joint pain Skin: Denies: rash Neurological: Denies: headache, numbness Endocrine: Denies: increased thirst, increased urine Hematologic/Lymphatic: Denies: easy bruising All Other Systems: negative except mentioned in HPI Physical Exam Vital Signs Date Time Temp Pulse Resp B/P (MAP) Pulse Ox O2 Delivery O2 Flow Rate FiO2 09/03/18 21:13 97.5 90 18 122/77 (92) 99 Room Air Vitals normal Sp02 EP Interpretation: reviewed, normal General Appearance: well appearing, no apparent distress, alert Head: normocephalic, atraumatic Eyes: bilateral eye PERRL, bilateral eye EOMI ENT: hearing grossly normal, normal pharynx Neck: full range of motion, supple, no meningismus Respiratory: chest non-tender, lungs clear, normal breath sounds Cardiovascular #1: regular rate, rhythm, no murmur Gastrointestinal: normal bowel sounds, non tender, no mass, no organomegaly, no bruit, non-distended Musculoskeletal: back normal, gait/station normal, normal range of motion Psychiatric: mood/affect normal Medical Decision Making Diagnostic Impression: Primary Impression: Episode of generalized weakness Additional Impression: UTI (urinary tract infection) Qualified Codes: N30.00 - Acute cystitis without hematuria ER Course Presents with generalized weakness. This may be secondary to UTI. No evidence of trauma. Will discharge home. Last Vital Signs Date Time Temp Pulse Resp B/P (MAP) Pulse Ox O2 Delivery O2 Flow Rate FiO2 09/03/18 21:13 97.5 90 18 122/77 (92) 99 Room Air Status: improved Disposition: HOME, SELF-CARE Condition: Stable Scripts Nitrofurantoin Monohyd/M-Cryst (Nitrofurantoin [place]-Mcr 100 mg) 100 Mg Capsule 100 MG ORAL Q12H, #14 CAP Prov: Ye Hull MD 09/04/18 Patient Instructions: Weakness Additional Instructions: Follow-up with your doctor in 7 days. Return if worse. Ye Hull MD Sep 03, 2018 22:03
[2018-09-03 22:23] LABS: BASOPHILS % (AUTO) 0.9 % (0.0-2.0); EOSINOPHILS % (AUTO) 4.3 % (0.0-3.0); HEMATOCRIT 36.7 % (37.0-47.0); HEMOGLOBIN 12.5 G/DL (12.0-16.0); LYMPHOCYTES % (AUTO) 22.3 % (20.0-45.0); MEAN CORPUSCULAR VOLUME 85 FL (80-99); MONOCYTES % (AUTO) 5.9 % (1.0-10.0); NEUTROPHILS % (AUTO) 66.5 % (45.0-75.0); PLATELET COUNT 331 K/UL (150-450); RED CELL DISTRIBUTION WIDTH 13.6 % (11.6-14.8)
[2018-09-03 22:35] LABS: ANION GAP 8 mmol/L (5-15); BLOOD UREA NITROGEN 22 mg/dL (7-18); CALCIUM 10.7 MG/DL (8.5-10.1); CARBON DIOXIDE 29 MMOL/L (21-32); CHLORIDE 102 MMOL/L (98-107); CREATININE 1.4 MG/DL (0.55-1.30); SODIUM 139 MMOL/L (136-145)
--- NOTE | 2018-09-03 23:30 | NUR ---
ED Nurse Note: Pt resting in RME chair, IV fluids infusing, no signs of distress. will continue to monitor
[2018-09-03 23:53] LABS: BILIRUBIN, URINE NEGATIVE (NEGATIVE); COLOR,URINE PALE YELLOW; GLUCOSE, URINE (UA) NEGATIVE (NEGATIVE); KETONES,URINE NEGATIVE (NEGATIVE); LEUKOCYTE ESTERASE ,URINE 1+ (NEGATIVE); NITRITE,URINE NEGATIVE (NEGATIVE); PH,URINE 7 (4.5-8.0); PROTEIN,URINE 1+ (NEGATIVE); UROBILINOGEN,URINE NORMAL MG/DL (0.0-1.0)
[2018-09-03 23:58] LABS: APPEARANCE,URINE SLIGHTLY CLOUDY
[2018-09-04] MEDS ORDERED: cefTRIAXone 1 GM in NS 55 ML IVPB ONE (00:15)
[2018-09-04] MEDS ORDERED: MACROBID100 MG ORAL (00:33)
[2018-09-04 00:45] VITALS: BP 122/77
--- NOTE | 2018-09-04 00:45 | NUR ---
ER DISCHARGE NOTE: Patient is cleared to be discharged per ERMD, pt is aox4, on room air, with stable vital signs. pt was given dc and prescription instructions, pt was able to verbalize understanding, pt id band and IV removed. pt is able to ambulate with steady gait. pt took all belongings.
== END 2018-09-04 00:45 | disposition home or self-care (01) ==
LOC: EDBD 21:21 → EMR 21:56
DX: R53.1 Weakness (principal); N30.00 Acute cystitis without hematuria; I10 Essential (primary) hypertension; E11.9 Type 2 diabetes mellitus without complications; Z85.9 Personal history of malignant neoplasm, unspecified; Z88.6 Allergy status to analgesic agent
CPT/HCPCS: 36415; 80048; 81001; 84484; 85025; 87086; 87181; 96361; 96365; 99284; J0696

== ENCOUNTER 2018-10-05 06:50 | Inpatient (IN) | payer MEDICARE, OTHER ==
[~2018-10-05] VITALS: Ht 165.1 cm; Wt 77.1 kg
[~2018-10-05 06:50] MED LIST changes: +MACROBID100 MG ORAL
[2018-10-05 06:51] VITALS: BP 135/80
[2018-10-05 07:24] LABS: BASOPHILS % (AUTO) 0.5 % (0.0-2.0); EOSINOPHILS % (AUTO) 0.9 % (0.0-3.0); HEMATOCRIT 36.1 % (37.0-47.0); HEMOGLOBIN 12.6 G/DL (12.0-16.0); LYMPHOCYTES % (AUTO) 9.3 % (20.0-45.0); MEAN CORPUSCULAR VOLUME 85 FL (80-99); MONOCYTES % (AUTO) 9.1 % (1.0-10.0); NEUTROPHILS % (AUTO) 80.1 % (45.0-75.0); PLATELET COUNT 296 K/UL (150-450); RED BLOOD COUNT 4.23 M/UL (4.20-5.40); WHITE BLOOD COUNT 15.1 K/UL (4.8-10.8)
[2018-10-05] MEDS ORDERED: HYDROcodone/Acetamin 5/325 tab ORAL ONE (07:30)
[2018-10-05 07:31] LABS: ANION GAP 11 mmol/L (5-15); BLOOD UREA NITROGEN 19 mg/dL (7-18); CALCIUM 10.5 MG/DL (8.5-10.1); CARBON DIOXIDE 26 MMOL/L (21-32); CHLORIDE 108 MMOL/L (98-107); CREATININE 1.2 MG/DL (0.55-1.30); POTASSIUM 3.9 MMOL/L (3.5-5.1); SODIUM 144 MMOL/L (136-145)
[2018-10-05 07:35] LABS: ALANINE AMINOTRANSFERASE 28 U/L (12-78); ALBUMIN 3.2 G/DL (3.4-5.0); ALBUMIN/GLOBULIN RATIO 0.7 (1.0-2.7); ALKALINE PHOSPHATASE 67 U/L (46-116); ASPARTATE AMINO TRANSFERASE 19 U/L (15-37); BILIRUBIN,TOTAL 0.7 MG/DL (0.2-1.0)
[2018-10-05 08:05] LABS: APPEARANCE,URINE CLEAR; BILIRUBIN, URINE NEGATIVE (NEGATIVE); COLOR,URINE PALE YELLOW; GLUCOSE, URINE (UA) NEGATIVE (NEGATIVE); KETONES,URINE NEGATIVE (NEGATIVE); LEUKOCYTE ESTERASE ,URINE 3+ (NEGATIVE); NITRITE,URINE POSITIVE (NEGATIVE); PH,URINE 8 (4.5-8.0); PROTEIN,URINE 2+ (NEGATIVE); UROBILINOGEN,URINE NORMAL MG/DL (0.0-1.0)
--- NOTE | 2018-10-05 08:19 | Emergency Room Report ---
History of Present Illness General Chief Complaint: Pain Source: Patient Present Illness HPI 82-year-old female presents ED for evaluation. Brought in by EMS from home. Complaining of generalized weakness and body aches for the last 5 days. Denies fevers or chills. Denies cough. Denies chest pain or shortness of breath. States she has history of arthritis in several joints and history of neuropathy. Pain is dull, 7 out of 10, nonradiating. No other aggravating relieving factors. Denies any other associated symptoms Allergies: Coded Allergies: CODEINE (Verified Allergy, Mild, 10/14/10) IBUPROFEN (Unverified Allergy, Unknown, 09/03/18) Patient History Past Medical History: DM, HTN Past Surgical History: none Pertinent Family History: none Social History: Denies: smoking, alcohol use, drug use Now: No Immunizations: UTD Reviewed Nursing Documentation: PMH: Agreed; PSxH: Agreed Nursing Documentation-PMH Past Medical History: No History, Except For Hx Cardiac Problems: Yes Hx Hypertension: Yes Hx Diabetes: Yes Hx Cancer: Yes Hx Gastrointestinal Problems: Yes History Of Psychiatric Problem: No - OSTEOPOROSIS Hx Neurological Problems: No Review of Systems All Other Systems: negative except mentioned in HPI Physical Exam Vital Signs Date Time Temp Pulse Resp B/P (MAP) Pulse Ox O2 Delivery O2 Flow Rate FiO2 10/05/18 06:45 98.4 103 18 136/79 (98) 98 Room Air Sp02 EP Interpretation: reviewed, normal General Appearance: no apparent distress, alert, GCS 15, non-toxic Head: normocephalic, atraumatic Eyes: bilateral eye normal inspection, bilateral eye PERRL ENT: hearing grossly normal, normal pharynx, no angioedema, normal voice Neck: full range of motion, supple/symm/no masses Respiratory: chest non-tender, lungs clear, normal breath sounds, speaking full sentences Cardiovascular #1: regular rate, rhythm, no edema Cardiovascular #2: 2+ carotid (R), 2+ carotid (L), 2+ radial (R), 2+ radial (L) , 2+ dorsalis pedis (R), 2+ dorsalis pedis (L) Gastrointestinal: normal bowel sounds, non tender, soft, non-distended, no guarding, no rebound Rectal: deferred Genitourinary: normal inspection, no CVA tenderness Musculoskeletal: back normal, gait/station normal, normal range of motion, non- tender Neurologic: alert, oriented x3, responsive, motor strength/tone normal, sensory intact, speech normal Psychiatric: judgement/insight normal, memory normal, mood/affect normal, no suicidal/homicidal ideation Reflexes: 3+ bicep (R), 3+ bicep (L), 3+ tricep (R), 3+ tricep (L), 3+ knee (R) , 3+ knee (L) Lymphatic: no adenopathy Medical Decision Making Diagnostic Impression: Primary Impression: UTI (urinary tract infection) Qualified Codes: N39.0 - Urinary tract infection, site not specified Additional Impressions: Generalized weakness Neuropathy ER Course Hospital Course 82 yo F presents to ED c/o weakness, generalized pain Differential diagnoses include: Pneumonia, UTI, sepsis, dehydration Clinical course Patient placed on stretcher. On monitoring manager with stable vitals are ED course. After initial history and physical, I ordered labs, IV fluids, EKG, chest x-ray, blood cultures, UA. Labs - electrolytes ok, noted leukocytosis, lactic ok, UA grossly positive for UTI EKG - NSR, no acutre ischemic changes interpreted by me CXR - interstitial congestion, cardiomegaly Abx given. given pain meds. Case discussed with Dr Ventura and they agreed to admit patient to their service for further care and support I feel this is a highly complex case requiring extensive working including EKG/ Rhythm strip, Xray/CT/US, Blood/urine lab work, repeat exams while in ED, and administration of strong opiates/narcotics for pain control, admission to hospital or close patient follow up. Diagnosis - UTI, generalized weakness, neuropathy Patient admitted to floor in serious condition Labs Test 10/05/18 07:10 10/05/18 08:00 10/05/18 09:00 White Blood Count 15.1 K/UL (4.8-10.8) Red Blood Count 4.23 M/UL (4.20-5.40) Hemoglobin 12.6 G/DL (12.0-16.0) Hematocrit 36.1 % (37.0-47.0) Mean Corpuscular Volume 85 FL (80-99) Mean Corpuscular Hemoglobin 29.7 PG (27.0-31.0) Mean Corpuscular Hemoglobin Concent 34.8 G/DL (32.0-36.0) Red Cell Distribution Width 14.0 % (11.6-14.8) Platelet Count 296 K/UL (150-450) Mean Platelet Volume 7.1 FL (6.5-10.1) Neutrophils (%) (Auto) 80.1 % (45.0-75.0) Lymphocytes (%) (Auto) 9.3 % (20.0-45.0) Monocytes (%) (Auto) 9.1 % (1.0-10.0) Eosinophils (%) (Auto) 0.9 % (0.0-3.0) Basophils (%) (Auto) 0.5 % (0.0-2.0) Sodium Level 144 MMOL/L (136-145) Potassium Level 3.9 MMOL/L (3.5-5.1) Chloride Level 108 MMOL/L (98-107) Carbon Dioxide Level 26 MMOL/L (21-32) Anion Gap 11 mmol/L (5-15) Blood Urea Nitrogen 19 mg/dL (7-18) Creatinine 1.2 MG/DL (0.55-1.30) Estimat Glomerular Filtration Rate mL/min (>60) Glucose Level 184 MG/DL (74-106) Calcium Level 10.5 MG/DL (8.5-10.1) Total Bilirubin 0.7 MG/DL (0.2-1.0) Aspartate Amino Transf (AST/SGOT) 19 U/L (15-37) Alanine Aminotransferase (ALT/SGPT) 28 U/L (12-78) Alkaline Phosphatase 67 U/L (46-116) Total Protein 7.9 G/DL (6.4-8.2) Albumin 3.2 G/DL (3.4-5.0) Globulin 4.7 g/dL Albumin/Globulin Ratio 0.7 (1.0-2.7) Lipase 136 U/L (73-393) Urine Color Pale yellow Urine Appearance Clear Urine pH 8 (4.5-8.0) Urine Specific [place] 1.010 (1.005-1.035) Urine Protein 2+ (NEGATIVE) Urine Glucose (UA) Negative (NEGATIVE) Urine Ketones Negative (NEGATIVE) Urine Blood 1+ (NEGATIVE) Urine Nitrite Positive (NEGATIVE) Urine Bilirubin Negative (NEGATIVE) Urine Urobilinogen Normal MG/DL (0.0-1.0) Urine Leukocyte Esterase 3+ (NEGATIVE) Urine RBC 0-2 /HPF (0 - 2) Urine WBC 30-40 /HPF (0 - 2) Urine Squamous Epithelial Cells Few /LPF (NONE/OCC) Urine Bacteria Many /HPF (NONE) Lactic Acid Level 0.70 mmol/L (0.4-2.0) Labs Test 10/05/18 07:10 10/05/18 08:00 White Blood Count 15.1 K/UL (4.8-10.8) Red Blood Count 4.23 M/UL (4.20-5.40) Hemoglobin 12.6 G/DL (12.0-16.0) Hematocrit 36.1 % (37.0-47.0) Mean Corpuscular Volume 85 FL (80-99) Mean Corpuscular Hemoglobin 29.7 PG (27.0-31.0) Mean Corpuscular Hemoglobin Concent 34.8 G/DL (32.0-36.0) Red Cell Distribution Width 14.0 % (11.6-14.8) Platelet Count 296 K/UL (150-450) Mean Platelet Volume 7.1 FL (6.5-10.1) Neutrophils (%) (Auto) 80.1 % (45.0-75.0) Lymphocytes (%) (Auto) 9.3 % (20.0-45.0) Monocytes (%) (Auto) 9.1 % (1.0-10.0) Eosinophils (%) (Auto) 0.9 % (0.0-3.0) Basophils (%) (Auto) 0.5 % (0.0-2.0) Sodium Level 144 MMOL/L (136-145) Potassium Level 3.9 MMOL/L (3.5-5.1) Chloride Level 108 MMOL/L (98-107) Carbon Dioxide Level 26 MMOL/L (21-32) Anion Gap 11 mmol/L (5-15) Blood Urea Nitrogen 19 mg/dL (7-18) Creatinine 1.2 MG/DL (0.55-1.30) Estimat Glomerular Filtration Rate mL/min (>60) Glucose Level 184 MG/DL (74-106) Calcium Level 10.5 MG/DL (8.5-10.1) Total Bilirubin 0.7 MG/DL (0.2-1.0) Aspartate Amino Transf (AST/SGOT) 19 U/L (15-37) Alanine Aminotransferase (ALT/SGPT) 28 U/L (12-78) Alkaline Phosphatase 67 U/L (46-116) Total Protein 7.9 G/DL (6.4-8.2) Albumin 3.2 G/DL (3.4-5.0) Globulin 4.7 g/dL Albumin/Globulin Ratio 0.7 (1.0-2.7) Lipase 136 U/L (73-393) Urine Color Pale yellow Urine Appearance Clear Urine pH 8 (4.5-8.0) Urine Specific [place] 1.010 (1.005-1.035) Urine Protein 2+ (NEGATIVE) Urine Glucose (UA) Negative (NEGATIVE) Urine Ketones Negative (NEGATIVE) Urine Blood 1+ (NEGATIVE) Urine Nitrite Positive (NEGATIVE) Urine Bilirubin Negative (NEGATIVE) Urine Urobilinogen Normal MG/DL (0.0-1.0) Urine Leukocyte Esterase 3+ (NEGATIVE) Urine RBC 0-2 /HPF (0 - 2) Urine WBC 30-40 /HPF (0 - 2) Urine Squamous Epithelial Cells Few /LPF (NONE/OCC) Urine Bacteria Many /HPF (NONE) EKG Diagnostic Results Rate: normal Rhythm: NSR ST Segments: no acute changes ASA given to the pt in ED: No Rhythm Strip Diag. Results EP Interpretation: yes Rhythm: NSR, no PVC's, no ectopy Chest X-Ray Diagnostic Results Chest X-Ray Diagnostic Results : Chest X-Ray Ordered: Yes # of Views/Limited/Complete: 1 View Indication: Other EP Interpretation: Yes Interpretation: no pneumothorax, other - cardiomegaly. interstitial congestion Impression: Other - cardiomegaly Electronically Signed by: Electronically signed by Mason Lee MD Last Vital Signs Date Time Temp Pulse Resp B/P (MAP) Pulse Ox O2 Delivery O2 Flow Rate FiO2 10/05/18 07:57 98.4 10/05/18 06:51 71 20 135/80 98 Room Air Status: improved Disposition: ADMITTED INPATIENT Condition: Serious Mason Lee MD Oct 05, 2018 08:19
[2018-10-05] MEDS ORDERED: Azithromycin 500 MG in NS 275 ML IV ONE (08:45)
[2018-10-05] MEDS ORDERED: cefTRIAXone 1 GM in NS 55 ML IVPB ONE (08:45)
[2018-10-05] MEDS ORDERED: UNOBMED (11:08)
[2018-10-05] MEDS ORDERED: Lidocaine 1% MPF 10mg/ml 5ml INJ ONE (11:30)
[2018-10-05] MEDS ORDERED: Miralax 17gm pkt ORAL PRN (11:30)
[2018-10-05 11:40] VITALS: BP 132/74
[2018-10-05] MEDS: Enoxaparin 40mg Inj SUBQ SCH (11:57)
--- NOTE | 2018-10-05 13:12 | Diagnostic Imaging Report ---
Indication: Dyspnea Comparison: 01/22/2018 A single view chest radiograph was obtained. Findings: Mild pulmonary vascular congestion is suspected with cardiomegaly that is increased slightly since the last occasion. Aorta is moderately ectatic. Bones are osteopenic. IMPRESSION: Mild pulmonary vascular congestion
--- NOTE | 2018-10-05 13:48 | History and Physical ---
History of Present Illness General Date patient seen: Oct 05, 2018 Time patient seen: 09:00 Reason for Hospitalization: Pain Present Illness HPI 82-year-old female presents ED for evaluation complaining of generalized weakness and body aches for the last 5 days. Denies fevers or chills. Denies cough. Denies chest pain or shortness of breath. States she has history of arthritis in several joints and history of neuropathy. Pain is dull, 7 out of 10, nonradiating. No other aggravating relieving factors. Denies any other associated symptom. In the ED she was found to have a UTI and started on Azythromycin and Ceftriaxone. She reports having a UTI several months ago, denies urinary symptoms and reports that she had numbness in her feet which is now resolved. She denies any visual, balance problems, no motor or sensory deficit now, no swallowing difficulties. Allergies: Coded Allergies: CODEINE (Verified Allergy, Mild, 10/14/10) IBUPROFEN (Unverified Allergy, Unknown, 09/03/18) Medication History Scheduled Amlodipine Besylate* (Amlodipine Besylate*), 10 MG ORAL DAILY, (Reported) Aspirin* (Aspir 81*), 81 MG ORAL DAILY, (Reported) Atenolol* (Tenormin*), 50 MG ORAL DAILY, (Reported) Atorvastatin Calcium* (Atorvastatin Calcium*), 10 MG ORAL BEDTIME, (Reported) Furosemide* (Lasix*), 20 MG ORAL DAILY, (Reported) Losartan Potassium* (Losartan Potassium*), 100 MG ORAL DAILY, (Reported) Nitrofurantoin Monohyd/M-Cryst (Nitrofurantoin [place]-Mcr 100 mg), 100 MG ORAL Q12H Repaglinide (Repaglinide), 1 MG PO DAILY, (Reported) Sitagliptin* (Januvia*), 100 MG ORAL DAILY, (Reported) Miscellaneous Medications Unable to Obtain Medications (Unable To Obtain Meds), (Reported) Patient History History Provided By: Patient Healthcare decision maker Resuscitation status Advanced Directive on File Review of Systems All Other Systems: negative except mentioned in HPI Physical Exam General Appearance: WD/WN, no apparent distress Lines, tubes and drains: peripheral HEENT: normocephalic Neck: non-tender, normal alignment Respiratory/Chest: lungs clear, normal breath sounds Cardiovascular/Chest: normal rate Abdomen: normal bowel sounds, non tender Skin Exam: normal pigmentation 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 Last 24 Hour Vital Signs Date Time Temp Pulse Resp B/P (MAP) Pulse Ox O2 Delivery O2 Flow Rate FiO2 10/05/18 11:11 98.2 89 20 136/78 98 Room Air 10/05/18 07:57 98.4 10/05/18 07:00 71 20 Room Air 10/05/18 06:51 98.4 71 20 135/80 98 Room Air 10/05/18 06:45 98.4 103 18 136/79 (98) 98 Room Air Laboratory Tests Test 10/05/18 07:10 10/05/18 08:00 10/05/18 09:00 White Blood Count 15.1 K/UL (4.8-10.8) H Red Blood Count 4.23 M/UL (4.20-5.40) Hemoglobin 12.6 G/DL (12.0-16.0) Hematocrit 36.1 % (37.0-47.0) L Mean Corpuscular Volume 85 FL (80-99) Mean Corpuscular Hemoglobin 29.7 PG (27.0-31.0) Mean Corpuscular Hemoglobin Concent 34.8 G/DL (32.0-36.0) Red Cell Distribution Width 14.0 % (11.6-14.8) Platelet Count 296 K/UL (150-450) Mean Platelet Volume 7.1 FL (6.5-10.1) Neutrophils (%) (Auto) 80.1 % (45.0-75.0) H Lymphocytes (%) (Auto) 9.3 % (20.0-45.0) L Monocytes (%) (Auto) 9.1 % (1.0-10.0) Eosinophils (%) (Auto) 0.9 % (0.0-3.0) Basophils (%) (Auto) 0.5 % (0.0-2.0) Sodium Level 144 MMOL/L (136-145) Potassium Level 3.9 MMOL/L (3.5-5.1) Chloride Level 108 MMOL/L (98-107) H Carbon Dioxide Level 26 MMOL/L (21-32) Anion Gap 11 mmol/L (5-15) Blood Urea Nitrogen 19 mg/dL (7-18) H Creatinine 1.2 MG/DL (0.55-1.30) Estimat Glomerular Filtration Rate mL/min (>60) Glucose Level 184 MG/DL (74-106) H Calcium Level 10.5 MG/DL (8.5-10.1) H Total Bilirubin 0.7 MG/DL (0.2-1.0) Aspartate Amino Transf (AST/SGOT) 19 U/L (15-37) Alanine Aminotransferase (ALT/SGPT) 28 U/L (12-78) Alkaline Phosphatase 67 U/L (46-116) Total Protein 7.9 G/DL (6.4-8.2) Albumin 3.2 G/DL (3.4-5.0) L Globulin 4.7 g/dL Albumin/Globulin Ratio 0.7 (1.0-2.7) L Lipase 136 U/L (73-393) Urine Color Pale yellow Urine Appearance Clear Urine pH 8 (4.5-8.0) Urine Specific [place] 1.010 (1.005-1.035) Urine Protein 2+ (NEGATIVE) H Urine Glucose (UA) Negative (NEGATIVE) Urine Ketones Negative (NEGATIVE) Urine Blood 1+ (NEGATIVE) H Urine Nitrite Positive (NEGATIVE) H Urine Bilirubin Negative (NEGATIVE) Urine Urobilinogen Normal MG/DL (0.0-1.0) Urine Leukocyte Esterase 3+ (NEGATIVE) H Urine RBC 0-2 /HPF (0 - 2) Urine WBC 30-40 /HPF (0 - 2) H Urine Squamous Epithelial Cells Few /LPF (NONE/OCC) Urine Bacteria Many /HPF (NONE) H Lactic Acid Level 0.70 mmol/L (0.4-2.0) Height (Feet): 5 Height (Inches): 5.00 Weight (Pounds): 170 Medications Current Medications Medications (Trade) Dose Ordered Sig/[place] Route PRN Reason Start Time Stop Time Status Last Admin Dose Admin Acetaminophen (Tylenol) 650 mg Q4H PRN ORAL Mild Pain (Pain Scale 1-3) 10/05/18 11:30 11/04/18 11:29 Acetaminophen (Tylenol) 650 mg Q4H PRN ORAL fever 10/05/18 11:30 11/04/18 11:29 Amlodipine Besylate (Norvasc) 10 mg DAILY ORAL 10/06/18 09:00 11/05/18 08:59 Aspirin (Ecotrin) 81 mg DAILY ORAL 10/06/18 09:00 11/05/18 08:59 Atenolol (Tenormin) 50 mg DAILY ORAL 10/06/18 09:00 11/05/18 08:59 Atorvastatin Calcium (Lipitor) 10 mg BEDTIME ORAL 10/05/18 21:00 11/04/18 20:59 Ceftriaxone Sodium (Rocephin) 1 gm DAILY ONCE IM 10/06/18 09:00 10/06/18 09:01 UNV Dextrose (Dextrose 50%) 25 ml Q30M PRN IV Hypoglycemia 10/05/18 11:30 11/04/18 11:29 Dextrose (Dextrose 50%) 50 ml Q30M PRN IV Hypoglycemia 10/05/18 11:30 11/04/18 11:29 Enoxaparin Sodium (Lovenox) 40 mg Q24H SUBQ 10/05/18 12:30 11/04/18 12:29 10/05/18 11:57 Furosemide (Lasix) 20 mg DAILY ORAL 10/06/18 09:00 11/05/18 08:59 Lidocaine (Xylocaine 1% MPF 5ml) 3.6 ml ONCE ONCE INJ 10/05/18 11:30 10/05/18 11:31 UNV Losartan Potassium (Cozaar) 100 mg DAILY ORAL 10/06/18 09:00 11/05/18 08:59 Ondansetron HCl (Zofran) 4 mg Q6H PRN IVP Nausea & Vomiting 10/05/18 11:30 11/04/18 11:29 Pantoprazole (Protonix) 40 mg DAILY ORAL 10/06/18 09:00 11/05/18 08:59 Polyethylene Glycol (Miralax) 17 gm HSPRN PRN ORAL Constipation 10/05/18 11:30 11/04/18 11:29 Repaglinide (Prandin) 0.5 mg DAILY ORAL 10/06/18 09:00 11/05/18 08:59 Sitagliptin Phosphate (Januvia) 50 mg ACBREAKFAST ORAL 10/06/18 06:30 11/05/18 06:29 Sodium Chloride 1,000 ml @ 75 mls/hr [id number] IVLG 10/05/18 12:19 11/04/18 12:18 10/05/18 11:57 Assessment/Plan Status: doing well, stable Assessment/Plan: 82-year-old female with generalized weakness and body aches for the last 5 days. # UTI Continue Ceftriaxone IV daily and follow up culture for targeted therapy Encourage PO intake Complete 1 lt more of IVF # Generalized weakness PT evaluation and further decisions to be made pending recommendations. The patient uses a cane and sometimes FWW at home. Add TSH, B12, Folate levels # Hypertension Resume home medications # DVT ppx with lovenox # GI ppx with PPI FULL CODE Rob Kaur MD Oct 05, 2018 13:48
[2018-10-05 16:00] VITALS: BP 149/81
[2018-10-05 20:00] VITALS: BP 118/60
[2018-10-05] MEDS ORDERED: Morphine Sulfate 2mg/ml Inj(IV/IM USE ONLY) IVP PRN (22:00)
[2018-10-05] MEDS ORDERED: Morphine Sulfate 4mg/ml Inj (IV USE ONLY) IVP PRN (22:00)
[2018-10-06] VITALS: BP 110/59
[2018-10-06 04:00] VITALS: BP 140/69
[2018-10-06] MEDS: sitaGLIPtin 50mg tab ORAL SCH (06:16)
[2018-10-06 07:33] LABS: BASOPHILS % (AUTO) 0.6 % (0.0-2.0); EOSINOPHILS % (AUTO) 1.5 % (0.0-3.0); HEMATOCRIT 31.4 % (37.0-47.0); HEMOGLOBIN 10.6 G/DL (12.0-16.0); LYMPHOCYTES % (AUTO) 16.5 % (20.0-45.0); MEAN CORPUSCULAR VOLUME 87 FL (80-99); MONOCYTES % (AUTO) 12.8 % (1.0-10.0); NEUTROPHILS % (AUTO) 68.6 % (45.0-75.0); PLATELET COUNT 234 K/UL (150-450); RED BLOOD COUNT 3.63 M/UL (4.20-5.40)
[2018-10-06 07:57] LABS: ANION GAP 11 mmol/L (5-15); BLOOD UREA NITROGEN 10 mg/dL (7-18); CALCIUM 9.3 MG/DL (8.5-10.1); CARBON DIOXIDE 24 MMOL/L (21-32); CHLORIDE 108 MMOL/L (98-107); CREATININE 0.9 MG/DL (0.55-1.30); POTASSIUM 3.3 MMOL/L (3.5-5.1); SODIUM 143 MMOL/L (136-145)
[2018-10-06 08:00] VITALS: BP 104/69
[2018-10-06] MEDS: Aspirin EC 81mg tab ORAL SCH (08:57)
[2018-10-06] MEDS: Repaglinide 1mg tab ORAL SCH (08:58)
[2018-10-06] MEDS: cefTRIAXone 1gm/D5W 55ml IVPB SCH ×2 (08:59)
[2018-10-06] MEDS: Losartan 50mg tab ORAL SCH (08:59)
[2018-10-06] MEDS ORDERED: Repaglinide 1mg tab ORAL SCH (09:00)
[2018-10-06 11:45] VITALS: BP 125/64
[2018-10-06] MEDS: Enoxaparin 40mg Inj SUBQ SCH (11:58)
[2018-10-06 16:00] VITALS: BP 124/64
--- NOTE | 2018-10-06 19:37 | General Progress Note ---
Assessment/Plan Status: doing well, stable Assessment/Plan: 82 year old female admitted for weakness, malaise and found to have UTI, dehydration, mild hypercalcemia, hypokalemia and IVA. #UTI, continue ceftriaxone. follow up cultures. Continue IV hydration #Hypokalemia, replace #IVA resolved, monitor renal function Full code time of this note may not reflect tie of encounter. I spent 40 minutes on this encounter, greater than 50% on counselling and care coordination. I spent 30 minutes in chart review. Subjective Date patient seen: Oct 06, 2018 ROS Limited/Unobtainable: No Constitutional: Denies: no symptoms, chills, diaphoresis, fever, malaise, weakness, other HEENT: Denies: no symptoms, eye pain, blurred vision, tearing, double vision, ear pain, ear discharge, nose pain, nose congestion, throat pain, throat swelling, mouth pain, mouth swelling, other Cardiovascular: Denies: no symptoms, chest pain, edema, irregular heart rate, lightheadedness, palpitations, syncope, other Respiratory: Denies: no symptoms, cough, orthopnea, shortness of breath, SOB with excertion, SOB at rest, sputum, stridor, wheezing, other Gastrointestinal/Abdominal: Denies: no symptoms, abdomen distended, abdominal pain, black stools, tarry stools, blood in stool, constipated, diarrhea, difficulty swallowing, nausea, poor appetite, poor fluid intake, rectal bleeding , vomiting, other Genitourinary: Denies: no symptoms, burning, discharge, frequency, flank pain, hematuria, incontinence, pain, urgency, other Neurologic/Psychiatric: Denies: no symptoms, anxiety, depressed, emotional problems, headache, numbness, paresthesia, pre-existing deficit, seizure, tingling, tremors, weakness, other Endocrine: Denies: no symptoms, excessive sweating, flushing, intolerance to cold, intolerance to heat, increased hunger, increased thirst, increased urine, unexplained weight gain, unexplained weight loss, other Hematologic/Lymphatic: Denies: no symptoms, anemia, easy bleeding, easy bruising, other Allergies: Coded Allergies: CODEINE (Verified Allergy, Mild, 10/14/10) IBUPROFEN (Unverified Allergy, Unknown, 09/03/18) Subjective Seen and examined doing well no complaints Objective Last 24 Hour Vital Signs Date Time Temp Pulse Resp B/P (MAP) Pulse Ox O2 Delivery O2 Flow Rate FiO2 10/06/18 16:00 98.2 71 18 124/64 (84) 97 10/06/18 15:44 98.3 10/06/18 11:45 98.3 63 18 125/64 (84) 98 10/06/18 09:00 Room Air 10/06/18 08:59 104/69 10/06/18 08:59 100 104/69 10/06/18 08:57 100 104/69 10/06/18 08:00 98.4 100 19 104/69 (81) 99 10/06/18 04:00 99.3 81 18 140/69 (92) 98 10/06/18 00:00 98.2 78 18 110/59 (76) 95 10/05/18 21:27 Room Air 10/05/18 20:00 99.5 84 20 118/60 (79) 96 Intake and Output 10/05/18 10/06/18 19:00 07:00 Intake Total 2755 ml 1125 ml Balance 2755 ml 1125 ml Intake Oral 300 ml 300 ml IV Total 1855 ml 825 ml Other 600 ml # Voids 1 2 # Bowel Movements 1 Laboratory Tests 10/06/18 06:59: White Blood Count 11.0H, Red Blood Count 3.63L, Hemoglobin 10.6L, Hematocrit 31.4L, Mean Corpuscular Volume 87, Mean Corpuscular Hemoglobin 29.3, Mean Corpuscular Hemoglobin Concent 33.9, Red Cell Distribution Width 14.0, Platelet Count 234, Mean Platelet Volume 6.5, Neutrophils (%) (Auto) 68.6, Lymphocytes (% ) (Auto) 16.5L, Monocytes (%) (Auto) 12.8H, Eosinophils (%) (Auto) 1.5, Basophils (%) (Auto) 0.6, Sodium Level 143, Potassium Level 3.3L, Chloride Level 108H, Carbon Dioxide Level 24, Anion Gap 11, Blood Urea Nitrogen 10, Creatinine 0.9, Estimat Glomerular Filtration Rate , Glucose Level 138H, Calcium Level 9.3 Height (Feet): 5 Height (Inches): 5.00 Weight (Pounds): 170 General Appearance: no apparent distress EENT: PERRL/EOMI Neck: non-tender, supple Cardiovascular: normal rate, regular rhythm Respiratory/Chest: lungs clear Abdomen: normal bowel sounds, non tender, soft 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 Oct 06, 2018 19:37
[2018-10-06 20:00] VITALS: BP_SYST 111; BP_SYST 130; BP_DIAS 58; BP_DIAS 64
[2018-10-07] VITALS: BP 142/75
[2018-10-07 04:00] VITALS: BP 136/73
[2018-10-07] MEDS: sitaGLIPtin 50mg tab ORAL SCH (06:22)
[2018-10-07 08:00] VITALS: BP 133/68
[2018-10-07] MEDS: Repaglinide 1mg tab ORAL SCH (09:20)
[2018-10-07] MEDS: Losartan 50mg tab ORAL SCH (09:21)
[2018-10-07] MEDS: Aspirin EC 81mg tab ORAL SCH (09:21)
[2018-10-07] MEDS: cefTRIAXone 1gm/D5W 55ml IVPB SCH ×2 (09:22)
[2018-10-07 12:00] VITALS: BP 110/78
[2018-10-07] MEDS: Enoxaparin 40mg Inj SUBQ SCH (13:20)
--- NOTE | 2018-10-07 15:27 | General Progress Note ---
Assessment/Plan Status: doing well, stable Assessment/Plan: 82 year old female admitted for weakness, malaise and found to have UTI, dehydration, mild hypercalcemia, hypokalemia and IVA. #UTI, continue ceftriaxone. Urine culture growing E.coli sensitive to ceftriaxone. #Hypokalemia, replace #IVA resolved, monitor renal function Full code DC planning time of this note may not reflect tie of encounter. I spent 40 minutes on this encounter, greater than 50% on counselling and care coordination. Subjective Date patient seen: Oct 07, 2018 ROS Limited/Unobtainable: No Constitutional: Denies: no symptoms, chills, diaphoresis, fever, malaise, weakness, other HEENT: Denies: no symptoms, eye pain, blurred vision, tearing, double vision, ear pain, ear discharge, nose pain, nose congestion, throat pain, throat swelling, mouth pain, mouth swelling, other Cardiovascular: Denies: no symptoms, chest pain, edema, irregular heart rate, lightheadedness, palpitations, syncope, other Respiratory: Denies: no symptoms, cough, orthopnea, shortness of breath, SOB with excertion, SOB at rest, sputum, stridor, wheezing, other Gastrointestinal/Abdominal: Denies: no symptoms, abdomen distended, abdominal pain, black stools, tarry stools, blood in stool, constipated, diarrhea, difficulty swallowing, nausea, poor appetite, poor fluid intake, rectal bleeding , vomiting, other Genitourinary: Denies: no symptoms, burning, discharge, frequency, flank pain, hematuria, incontinence, pain, urgency, other Neurologic/Psychiatric: Denies: no symptoms, anxiety, depressed, emotional problems, headache, numbness, paresthesia, pre-existing deficit, seizure, tingling, tremors, weakness, other Endocrine: Denies: no symptoms, excessive sweating, flushing, intolerance to cold, intolerance to heat, increased hunger, increased thirst, increased urine, unexplained weight gain, unexplained weight loss, other Hematologic/Lymphatic: Denies: no symptoms, anemia, easy bleeding, easy bruising, other Allergies: Coded Allergies: CODEINE (Verified Allergy, Mild, 10/14/10) IBUPROFEN (Unverified Allergy, Unknown, 09/03/18) Subjective seen and examined. c/o some facial pain and headache from chronic injury from 20 years ago otherwise no abdominal pain Objective Last 24 Hour Vital Signs Date Time Temp Pulse Resp B/P (MAP) Pulse Ox O2 Delivery O2 Flow Rate FiO2 10/07/18 12:00 97.5 79 16 110/78 (89) 99 10/07/18 11:27 97.9 10/07/18 09:21 133/68 10/07/18 09:21 83 133/68 10/07/18 09:21 83 133/68 10/07/18 08:11 Room Air 10/07/18 08:00 97.9 83 20 133/68 (89) 99 10/07/18 04:00 98.4 75 18 136/73 (94) 100 10/07/18 00:00 98.4 81 18 142/75 (97) 100 10/06/18 21:00 Room Air 10/06/18 20:00 98.2 75 18 130/64 (86) 99 10/06/18 16:00 98.2 71 18 124/64 (84) 97 Intake and Output 10/06/18 10/07/18 18:59 06:59 Intake Total 1955 ml 1050 ml Balance 1955 ml 1050 ml Intake Oral 300 ml IV Total 955 ml 750 ml Other 1000 ml # Voids 4 Height (Feet): 5 Height (Inches): 5.00 Weight (Pounds): 170 General Appearance: no apparent distress EENT: PERRL/EOMI Neck: supple Cardiovascular: normal rate, regular rhythm, no JVD Respiratory/Chest: lungs clear Abdomen: normal bowel sounds, non tender, soft 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 Oct 07, 2018 15:27
[2018-10-07 15:50] VITALS: BP 122/72
[2018-10-07 20:00] VITALS: BP 145/78
[2018-10-08] VITALS: BP 127/85
[2018-10-08 04:00] VITALS: BP 131/8
[2018-10-08] MEDS: sitaGLIPtin 50mg tab ORAL SCH (06:02)
[2018-10-08 08:00] VITALS: BP 119/76
[2018-10-08 08:16] LABS: ALANINE AMINOTRANSFERASE 24 U/L (12-78); ALBUMIN 2.8 G/DL (3.4-5.0); ALBUMIN/GLOBULIN RATIO 0.7 (1.0-2.7); ALKALINE PHOSPHATASE 61 U/L (46-116); ANION GAP 12 mmol/L (5-15); ASPARTATE AMINO TRANSFERASE 19 U/L (15-37); BILIRUBIN,TOTAL 0.3 MG/DL (0.2-1.0); BLOOD UREA NITROGEN 4 mg/dL (7-18); CALCIUM 8.8 MG/DL (8.5-10.1); CARBON DIOXIDE 24 MMOL/L (21-32); CHLORIDE 110 MMOL/L (98-107); CREATININE 0.8 MG/DL (0.55-1.30); POTASSIUM 3.3 MMOL/L (3.5-5.1); SODIUM 146 MMOL/L (136-145)
--- NOTE | 2018-10-08 09:07 | General Progress Note ---
Assessment/Plan Status: doing well, stable Assessment/Plan: 82 year old female admitted for weakness, malaise and found to have UTI, dehydration, mild hypercalcemia, hypokalemia and IVA. #UTI, continue ceftriaxone. Urine culture growing E.coli sensitive to ceftriaxone. #Hypokalemia, replace #IVA resolved, monitor renal function Full code DC planning , home with services. time of this note may not reflect tie of encounter. I spent 40 minutes on this encounter, greater than 50% on counselling and care coordination. Subjective Date patient seen: Oct 08, 2018 ROS Limited/Unobtainable: No Constitutional: Denies: no symptoms, chills, diaphoresis, fever, malaise, weakness, other HEENT: Denies: no symptoms, eye pain, blurred vision, tearing, double vision, ear pain, ear discharge, nose pain, nose congestion, throat pain, throat swelling, mouth pain, mouth swelling, other Cardiovascular: Denies: no symptoms, chest pain, edema, irregular heart rate, lightheadedness, palpitations, syncope, other Respiratory: Denies: no symptoms, cough, orthopnea, shortness of breath, SOB with excertion, SOB at rest, sputum, stridor, wheezing, other Gastrointestinal/Abdominal: Denies: no symptoms, abdomen distended, abdominal pain, black stools, tarry stools, blood in stool, constipated, diarrhea, difficulty swallowing, nausea, poor appetite, poor fluid intake, rectal bleeding , vomiting, other Genitourinary: Denies: no symptoms, burning, discharge, frequency, flank pain, hematuria, incontinence, pain, urgency, other Neurologic/Psychiatric: Denies: no symptoms, anxiety, depressed, emotional problems, headache, numbness, paresthesia, pre-existing deficit, seizure, tingling, tremors, weakness, other Endocrine: Denies: no symptoms, excessive sweating, flushing, intolerance to cold, intolerance to heat, increased hunger, increased thirst, increased urine, unexplained weight gain, unexplained weight loss, other Hematologic/Lymphatic: Denies: no symptoms, anemia, easy bleeding, easy bruising, other Allergies: Coded Allergies: CODEINE (Verified Allergy, Mild, 10/14/10) IBUPROFEN (Unverified Allergy, Unknown, 09/03/18) Subjective seen and examined. No complaints Objective Last 24 Hour Vital Signs Date Time Temp Pulse Resp B/P (MAP) Pulse Ox O2 Delivery O2 Flow Rate FiO2 10/08/18 04:00 98.0 82 18 131/8 (49) 99 10/08/18 00:48 97.9 10/08/18 00:00 98.2 95 18 127/85 (99) 97 10/07/18 21:00 Room Air 10/07/18 20:00 97.9 91 18 145/78 (100) 98 10/07/18 15:50 97.3 88 16 122/72 (89) 97 10/07/18 12:00 97.5 79 16 110/78 (89) 99 10/07/18 09:21 133/68 10/07/18 09:21 83 133/68 10/07/18 09:21 83 133/68 Intake and Output 10/07/18 10/08/18 19:00 07:00 Intake Total 555 ml 1305 ml Balance 555 ml 1305 ml Intake Oral 480 ml 480 ml IV Total 75 ml 825 ml # Voids 4 3 # Bowel Movements 2 Laboratory Tests 10/08/18 05:30: Sodium Level 146H, Potassium Level 3.3L, Chloride Level 110H, Carbon Dioxide Level 24, Anion Gap 12, Blood Urea Nitrogen 4L, Creatinine 0.8, Estimat Glomerular Filtration Rate , Glucose Level 108H, Calcium Level 8.8, Total Bilirubin 0.3, Aspartate Amino Transf (AST/SGOT) 19, Alanine Aminotransferase ( ALT/SGPT) 24, Alkaline Phosphatase 61, Total Protein 6.9, Albumin 2.8L, Globulin 4.1, Albumin/Globulin Ratio 0.7L Height (Feet): 5 Height (Inches): 5.00 Weight (Pounds): 170 Objective General Appearance: no apparent distress EENT: PERRL/EOMI Neck: supple Cardiovascular: normal rate, regular rhythm, no JVD Respiratory/Chest: lungs clear Abdomen: normal bowel sounds, non tender, soft Neurologic: quantity surveyor II-XII grossly normal Skin: normal pigmentgeneo Hitesh Ritter M.D. Oct 08, 2018 09:07
[2018-10-08] MEDS: Repaglinide 1mg tab ORAL SCH (10:13)
[2018-10-08] MEDS: Aspirin EC 81mg tab ORAL SCH (10:13)
[2018-10-08] MEDS: Losartan 50mg tab ORAL SCH (10:14)
[2018-10-08] MEDS: cefTRIAXone 1gm/D5W 55ml IVPB SCH ×2 (10:14)
[2018-10-08 12:00] VITALS: BP 114/74
[2018-10-08] MEDS: Enoxaparin 40mg Inj SUBQ SCH (13:07)
[2018-10-08 16:00] VITALS: BP 123/79
[2018-10-08 20:00] VITALS: BP 130/81
[2018-10-09] VITALS: BP 150/101
[2018-10-09 04:00] VITALS: BP 134/80
[2018-10-09] MEDS: sitaGLIPtin 50mg tab ORAL SCH (05:44)
[2018-10-09 07:16] LABS: ANION GAP 11 mmol/L (5-15); BLOOD UREA NITROGEN 4 mg/dL (7-18); CALCIUM 8.6 MG/DL (8.5-10.1); CARBON DIOXIDE 24 MMOL/L (21-32); CHLORIDE 109 MMOL/L (98-107); CREATININE 0.8 MG/DL (0.55-1.30); SODIUM 144 MMOL/L (136-145)
[2018-10-09 07:23] LABS: BASOPHILS % (AUTO) 0.4 % (0.0-2.0); EOSINOPHILS % (AUTO) 4.9 % (0.0-3.0); HEMATOCRIT 32.1 % (37.0-47.0); HEMOGLOBIN 10.7 G/DL (12.0-16.0); LYMPHOCYTES % (AUTO) 26.1 % (20.0-45.0); MEAN CORPUSCULAR VOLUME 87 FL (80-99); MONOCYTES % (AUTO) 7.8 % (1.0-10.0); NEUTROPHILS % (AUTO) 60.8 % (45.0-75.0); PLATELET COUNT 271 K/UL (150-450); RED BLOOD COUNT 3.69 M/UL (4.20-5.40); RED CELL DISTRIBUTION WIDTH 14.2 % (11.6-14.8); WHITE BLOOD COUNT 10.8 K/UL (4.8-10.8)
[2018-10-09 08:00] VITALS: BP 133/70
[2018-10-09] MEDS: Aspirin EC 81mg tab ORAL SCH (08:44)
[2018-10-09] MEDS: Repaglinide 1mg tab ORAL SCH (08:44)
[2018-10-09] MEDS: Losartan 50mg tab ORAL SCH (08:45)
[2018-10-09] MEDS: cefTRIAXone 1gm/D5W 55ml IVPB SCH ×2 (08:45)
--- NOTE | 2018-10-09 11:40 | Cardiology Report ---
APPROVED REPORT EKG Measurement Heart [id number] Normal sinus rhythm Minimal voltage criteria for LVH, may be normal variant Nonspecific T wave abnormality Abnormal ECG
[2018-10-09] MEDS: Enoxaparin 40mg Inj SUBQ SCH (11:41)
[2018-10-09 12:00] VITALS: BP 113/68
[2018-10-09] MEDS ORDERED: CEFPODOXIME PR200 MG PO (12:02)
--- NOTE | 2018-10-09 12:04 | Discharge Summary ---
Discharge Summary Hospital Course Date of Admission Oct 05, 2018 at 08:55 Date of Discharge Admitting Diagnosis weakness, UTI HPI Yenifer Louis is a 82 year old female who was admitted on Oct 05, 2018 at 08:55 for Weakness, Urinary Tract Infection Hospital Course 82 year old female admitted for weakness, malaise and found to have UTI, dehydration, mild hypercalcemia, hypokalemia and IVA. #UTI, continue ceftriaxone. Urine culture growing E.coli sensitive to ceftriaxone. #Hypokalemia, replace #IVA resolved, monitor renal function Full code DC planning , home with services. time of this note may not reflect tie of encounter. I spent 40 minutes on this encounter, greater than 50% on counselling and care coordination. Discharge Discharge Disposition Patient was discharged to Discharge Diagnoses: (1) UTI (urinary tract infection) (2) Generalized weakness Hitesh Ritter M.D. Oct 09, 2018 12:04
[2018-10-09 15:47] VITALS: BP 130/82
== END 2018-10-09 15:49 | disposition home or self-care (01) | DRG 690 ==
LOC: EDBD 06:50 → EMR 07:14 → 4E 08:55 → EDBEDREQ 11:08 → 4E 10-06 06:33
DX: N39.0 Urinary tract infection, site not specified (principal); N17.9 Acute kidney failure, unspecified; I10 Essential (primary) hypertension; Z88.6 Allergy status to analgesic agent; E86.0 Dehydration; E87.6 Hypokalemia; E83.52 Hypercalcemia
CPT/HCPCS: 36415; 71045; 80048; 80053; 81003; 82962; 83605; 83690; 85025; 87040; 87086; 87181; 93005; 96365; 96367; 99285; J8499

== ENCOUNTER 2019-03-28 12:48 | Outpatient (CLI) | payer MEDICARE, OTHER ==
[~2019-03-28 12:48] MED LIST changes: +CATAPRES0.1 MG ORAL; +CEFPODOXIME PR200 MG PO; +GABAPENTIN100 MG ORAL; +HYDROCHLOROTH12.5 M2 ORAL; +HYDROXYCHLOROQ200 M1 PO; +POTASSIUM CHLO10 MEQ ORAL; +TRAMADOL HCL50 MG ORAL; +UNOBMED
--- NOTE | 2019-03-28 14:01 | General Progress Note ---
Assessment/Plan Problem List: (1) UTI (urinary tract infection) ICD Codes: N39.0 - Urinary tract infection, site not specified SNOMED: 70979549 (2) History of bladder carcinoma ICD Codes: Z85.51 - Personal history of malignant neoplasm of bladder SNOMED: 005990348, 450614768 (3) Upper GI bleed ICD Codes: K92.2 - Gastrointestinal hemorrhage, unspecified SNOMED: 17626074 (4) HTN (hypertension) ICD Codes: I10 - Essential (primary) hypertension SNOMED: 49456224 (5) Diabetes ICD Codes: E11.9 - Type 2 diabetes mellitus without complications SNOMED: 91753255 Assessment/Plan: recent EGD HP neg add ppi daily plan colonoscopy given anemia and stool ob positive Subjective ROS Limited/Unobtainable: Yes Allergies: Coded Allergies: CODEINE (Verified Allergy, Mild, 10/14/10) IBUPROFEN (Unverified Allergy, Unknown, 09/03/18) Objective General Appearance: alert EENT: normal ENT inspection Neck: supple Cardiovascular: normal rate Respiratory/Chest: decreased breath sounds Abdomen: normal bowel sounds, non tender, soft Extremities: non-tender Estuardo Booth MD Mar 28, 2019 14:01
[2019-03-28 15:50] VITALS: BP 125/80
[2019-03-28] MEDS ORDERED: NAMENDA10 MG ORAL (15:58)
[2019-03-28] MEDS ORDERED: JANUVIA50 MG ORAL (15:58)
[2019-03-28] MEDS ORDERED: NORCO 10-325 T1 EACH ORAL (15:58)
[2019-03-28] MEDS ORDERED: ASPIRIN EC81 MG ORAL (15:58)
[2019-03-28] MEDS ORDERED: GABAPENTIN300 MG ORAL (15:58)
[2019-03-28] MEDS ORDERED: ACID REDUCER20 MG ORAL (15:58)
[2019-03-28] MEDS ORDERED: NAPROXEN500 M2 ORAL (15:58)
[2019-03-28] MEDS ORDERED: PLAQUENIL PO (15:58)
== END 2019-03-28 14:48 | disposition home or self-care (01) ==
LOC: PAN 12:48
DX: N39.0 Urinary tract infection, site not specified (principal); Z85.51 Personal history of malignant neoplasm of bladder; K92.2 Gastrointestinal hemorrhage, unspecified; I10 Essential (primary) hypertension; E11.9 Type 2 diabetes mellitus without complications; Z88.6 Allergy status to analgesic agent
CPT/HCPCS: G0463

== ENCOUNTER 2019-04-01 09:53 | Day surgery (SDC) | payer MEDICARE, OTHER ==
[~2019-04-01] VITALS: Ht 160 cm; Wt 79.8 kg
[2019-04-01] VITALS (8 sets, daily range): BP systolic 129–142; BP diastolic 69–89
[~2019-04-01 09:53] MED LIST changes: +ACID REDUCER20 MG ORAL; +ASPIRIN EC81 MG ORAL; +JANUVIA50 MG ORAL; +NAMENDA10 MG ORAL; +NAPROXEN500 M2 ORAL; +NORCO 10-325 T1 EACH ORAL; +PLAQUENIL PO
[2019-04-01] MEDS ORDERED: LR 1000ml 1,000 ML IVLG SCH (10:20)
--- NOTE | 2019-04-01 10:20 | Anethesia Preoperative Eval ---
Anesthesia Pre-op PMH/ROS General Date of Evaluation: Apr 01, 2019 Anesthesiologist: Ruben ASA Score: ASA 3 Mallampati Score Class I : Soft palate, uvula, fauces, pillars visible Class II: Soft palate, uvula, fauces visible Class III: Soft palate, base of uvula visible Class IV: Only hard plate visible Mallampati Classification: Class II Surgeon: Emmy Diagnosis: GI bleed Surgical Procedure: Colonoscopy Anesthesia History: none Family History: no anesthesia problems Allergies: Coded Allergies: CODEINE (Verified Allergy, Mild, 10/14/10) IBUPROFEN (Unverified Allergy, Unknown, 09/03/18) Medications: see eMAR Patient NPO?: Yes NPO Date: Apr 01, 2019 NPO Time: 00:00 Past Medical History Cardiovascular: Reports: HTN; Denies: CAD, VT, valve dz, arrhythmia, other Pulmonary: Denies: asthma, COPD, GRISELDA, other Gastrointestinal/Genitourinary: Reports: GERD, ESRD, other - gastritis., hiatal hernia, bladder CA; Denies: CRI Neurologic/Psychiatric: Reports: depression/anxiety; Denies: dementia, CVA, TIA, other Endocrine: Reports: DM; Denies: hypothyroidism, steroids, other HEENT: Reports: cataract (L), cataract (R), glaucoma; Denies: [place] (L), [place] (R), other Hematology/Immune: Denies: anemia, DVT, bleeding disorder, other Musculoskeletal/Integumentary: Reports: OA, DJD; Denies: RA, DDD, edema, other PSxH Narrative: appy, right tkr Anesthesia Pre-op Phys. Exam Physician Exam see chart Constitutional: NAD Cardiovascular: RRR Respiratory: CTA Airway Exam Mallampati Score: Class II MO: limited ROM: limited Anesthesia Pre-op A/P Labs see chart Studies Pre-op Studies: EKG - sr Risk Assessment & Plan Assessment: asa III Plan: MAC Status Change Before Surgery: No Pre-Antibiotics Drug: N/A Mame Young MD Apr 01, 2019 10:20
[2019-04-01] MEDS ORDERED: DiphenhydrAMINE 50mg/ml Inj IVP PRN (10:30)
[2019-04-01] MEDS ORDERED: Lidocaine 1% MPF 10mg/ml 5ml ONE (12:00)
[2019-04-01] MEDS ORDERED: Propofol 200mg/20ml IV ONE (12:00)
[2019-04-01] MEDS ORDERED: LR 1000ml ONE (12:00)
--- NOTE | 2019-04-01 12:01 | Pre-Procedure Note/Attestation ---
Pre-Procedure Note/Attestation Complete Prior to Procedure Planned Procedure: not applicable Procedure Narrative: esophagogastroduodenoscopy and colonoscopy Indications for Procedure Pre-Operative Diagnosis: gib Attestation I attest that I discussed the nature of the procedure; its benefits; risks and complications; and alternatives (and the risks and benefits of such alternatives ), prior to the procedure, with the patient (or the patient's legal fulfillment representative). I attest that, if there was a reasonable possibility of needing a blood transfusion, the patient (or the patient's legal fulfillment representative) was given the [facility] standardized written summary, pursuant to the [place] Blood Safety Act ([place] Health and Safety Code # 1645, as amended). I attest that I re-evaluated the patient just prior to the surgery and that there has been no change in the patient's H&P, except as documented below: Estuardo Booth MD Apr 01, 2019 12:01
--- NOTE | 2019-04-01 12:02 | Short Stay Surgery H&P ---
History of Present Illness History of Present Illness Chief Complaint see recent office note HPI Yenifer Louis is a 83 year old female who was admitted on for Gi Bleed Patient History Allergies: Coded Allergies: CODEINE (Verified Allergy, Mild, 10/14/10) IBUPROFEN (Unverified Allergy, Unknown, 09/03/18) Medication History Scheduled Amlodipine Besylate* (Amlodipine Besylate*), 10 MG ORAL DAILY, (Reported) Aspirin Ec* (Aspirin Ec*), 81 MG ORAL DAILY, (Reported) Atenolol* (Tenormin*), 50 MG ORAL DAILY, (Reported) Atorvastatin Calcium* (Atorvastatin Calcium*), 10 MG ORAL BEDTIME, (Reported) Famotidine (Acid Optical Dispenser), 20 MG ORAL DAILY, (Reported) Gabapentin* (Gabapentin*), 300 MG ORAL BEDTIME, (Reported) Memantine Hcl* (Namenda*), 10 MG ORAL DAILY, (Reported) Naproxen* (Naproxen*), 500 MG ORAL DAILY, (Reported) Omeprazole (Omeprazole), 40 MG ORAL DAILY Potassium Chloride* (K-Dur*), 10 MEQ ORAL DAILY, (Reported) Sitagliptin (Januvia), 50 MG ORAL DAILY, (Reported) [Plaquenil ], 200 MG PO DAILY, (Reported) Scheduled PRN Hydrocodone Bit/Acetaminophen 10-325* ([place] 10-325*), 1 TAB ORAL Q6H PRN for For Pain, (Reported) Discontinued Medications Cephalexin* (Keflex*), 500 MG ORAL EVERY 12 HOURS Discontinued Reason: Therapy completed Furosemide* (Lasix*), 20 MG ORAL DAILY, (Reported) Discontinued Reason: MD discontinued med Gabapentin* (Gabapentin*), 200 MG ORAL THREE TIMES A DAY Discontinued Reason: Medication dose changed Repaglinide (Repaglinide), 1 MG PO DAILY, (Reported) Discontinued Reason: MD discontinued med Physical Exam Vital Signs Last Vital Signs Date Time Temp Pulse Resp B/P (MAP) Pulse Ox O2 Delivery O2 Flow Rate FiO2 04/01/19 11:41 97.7 79 18 135/73 98 Room Air Plan Attestation Are the patient's medical conditions optimized for surgery? Estuardo Booth MD Apr 01, 2019 12:02
--- NOTE | 2019-04-01 12:39 | Endoscopy Procedure Note ---
Endoscopy Procedure Note General Indication for Procedure: gib Procedures Performed: colonoscopy Operative Findings/Diagnosis: 2 polyps Specimen: yes Pt Tolerated Procedure Well: Yes Estimated Blood Loss: none Anesthesia Anesthesiologist: winnie Anesthesia: MAC Inserted Devices Implant(s) used?: No Quality Quality of Bowel Preparation: Good Did scope reach the cecum?: Yes Was there any complications?: No GI Core Measures 50 yrs or older w/o bx or poly: No 10yrs. F/U recommended: Yes If not recommended, why?: Above average risk 18 years or older w/prev. colo: No Estuardo Booth MD Apr 01, 2019 12:38
--- NOTE | 2019-04-01 12:45 | Immediate Post-Op Evaluation ---
Immediate Post-Op Evalulation Immediate Post-Op Evalulation Procedure: colonoscopy Date of Evaluation: Apr 01, 2019 Time of Evaluation: 12:47 IV Fluids: 100 Blood Products: 0 Estimated Blood Loss: 0 Urinary Output: 0 Blood Pressure Systolic: 129 Blood Pressure Diastolic: 80 Pulse Rate: 77 Respiratory Rate: 16 O2 Sat by Pulse Oximetry: 100 Temperature (Fahrenheit): 97 Pain Score (1-10): 0 Nausea: No Vomiting: No Complications 0 Patient Status: awake, reacts, patent, none Hydration Status: adequate Drug: N/A Mame Young MD Apr 01, 2019 12:45
--- NOTE | 2019-04-01 12:46 | 48 Hour Post Anesthesia Eval ---
Post Anesthesia Evaluation Procedure: colonoscopy Date of Evaluation: Apr 01, 2019 Airway: patent Nausea: No Vomiting: No Pain Intensity: 0 Hydration Status: adequate Cardiopulmonary Status: at baseline Mental Status/LOC: patient returned to baseline Post-Anesthesia Complications: 0 Follow-up care needed: ready to discharge Mame Young MD Apr 01, 2019 12:46
--- NOTE | 2019-04-01 15:30 | Procedure Note ---
DATE OF PROCEDURE: 04/01/2019 SURGEON: Estuardo Booth M.D. PROCEDURE: Colonoscopy with biopsy. ANESTHESIA: Per Dr. Miranda. INSTRUMENT: Olympus adult flexible colonoscope. INDICATION: Rectal bleeding. REASON FOR PROCEDURE: The procedure, risks, benefits, and possible consequences, including hemorrhage, aspiration, perforation and infection, and alternative treatments, were explained to the patient/legal guardian by Dr. Estuardo Booth and the patient/legal guardian understood and accepted these risks. DESCRIPTION OF PROCEDURE: After informed consent was obtained and the patient was adequately sedated, first rectal examination was performed, which was positive for internal hemorrhoids. Then the scope was advanced from the rectum into the cecum and then subsequently to terminal ileum. Quality of prep overall was very good. The patient has some scattered diverticulosis in the right colon. He had two polys in the transverse colon, both of them were small removed with cold biopsy forceps technique. In the rectum, there was evidence of proctitis. Biopsy from the rectum was obtained for diagnosis. Retroflexion of rectum was performed, which showed evidence of internal hemorrhoids. SUMMARY OF FINDINGS: 1. Internal hemorrhoids. 2. Proctitis status post biopsy. 3. Two colonic polyps removed, see above for details. 4. Diverticulosis, see above. RECOMMENDATIONS: Follow up biopsy results and treat accordingly. I want to thank, Dr. Proctor, for this kind referral. Estuardo Booth M.D. DR: Erin JOB#: [id number] CC: Hitesh Ritter M.D.
== END 2019-04-01 13:45 | disposition home or self-care (01) ==
LOC: GAS 09:53
DX: K62.5 Hemorrhage of anus and rectum (principal); K64.8 Other hemorrhoids; K62.89 Other specified diseases of anus and rectum; K63.5 Polyp of colon; K57.90 Diverticulosis of intestine, part unspecified, without perforation or abscess without bleeding; Z88.6 Allergy status to analgesic agent; E11.22 Type 2 diabetes mellitus with diabetic chronic kidney disease; I12.0 Hypertensive chronic kidney disease with stage 5 chronic kidney disease or end stage renal disease; N18.6 End stage renal disease; M19.90 Unspecified osteoarthritis, unspecified site; Z90.89 Acquired absence of other organs; F41.9 Anxiety disorder, unspecified; F32.9 Major depressive disorder, single episode, unspecified; K21.9 Gastro-esophageal reflux disease without esophagitis; Z96.651 Presence of right artificial knee joint; Z79.82 Long term (current) use of aspirin; Z79.899 Other long term (current) drug therapy
CPT/HCPCS: 45380; 82962; 93005; J2704; J7120; 94003; 94150

== ENCOUNTER 2019-05-27 17:45 | Inpatient (IN) | payer MEDICARE, OTHER ==
[~2019-05-27] VITALS: Ht 165.1 cm; Wt 79.4 kg
--- NOTE | 2019-05-27 18:00 | NUR ---
ED Nurse Note: Dr. Norman at bedside.
[2019-05-27 18:01] VITALS: BP 128/78
--- NOTE | 2019-05-27 18:05 | NUR ---
ED Nurse Note:pt. was BIBA from home with c/o abdominal pain, nausea diahrrea for 2 days, pt. is A/ox4 no fever
--- NOTE | 2019-05-27 18:31 | NUR ---
ED Nurse Note:blood was sent to labs and iv meds given
--- NOTE | 2019-05-27 18:31 | NUR ---
ED Nurse Note: X-ray at bedside.
--- NOTE | 2019-05-27 18:42 | Emergency Room Report ---
History of Present Illness General Chief Complaint: Generalized Weakness Source: Patient Present Illness HPI 83-year-old female brought in by EMS after increased generalized weakness. She reports of increased epigastric abdominal pain as well as bilateral lower abdominal pain. Had recent hospitalization for emphysematous cystitis. Patient has been noted to have increased discoloration of stool. Denies any vomiting. Reports taking some nausea medication. Had a gradual onset of symptoms. Reports increased nausea without any vomiting.Patient had previous CT imaging which showed distended gallbladder. 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 Review of Systems All Other Systems: negative except mentioned in HPI Physical Exam Vital Signs Date Time Temp Pulse Resp B/P (MAP) Pulse Ox O2 Delivery O2 Flow Rate FiO2 05/27/19 17:38 98.2 93 18 128/78 (95) 99 Room Air Sp02 EP Interpretation: reviewed, normal General Appearance: normal inspection, alert, GCS 15, Chronically Ill Head: atraumatic ENT: normal ENT inspection, hearing grossly normal, normal voice Neck: normal inspection, full range of motion, supple, no bony tend Respiratory: normal inspection, lungs clear, normal breath sounds, no respiratory distress, no retraction, no wheezing Cardiovascular #1: regular rate, rhythm, no edema Gastrointestinal: normal inspection, normal bowel sounds, soft, no hernia, tenderness - Epigastric and suprapubic tenderness. 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 Differential diagnosis include was not limited to anemia, gastritis, ulcer, urinary tract infection among others. Because of complexity of patient's case laboratory tests and imaging studies were ordered. Patient's EKG interpreted by me showed normal sinus rhythm with a rate of [address] or T wave changes.Patient was given IV antibiotics as well as IV fluids. Dr. Horn was contacted for [facility] due to a recent admission. Laboratory Tests Test 05/27/19 18:15 05/27/19 18:50 05/29/19 05:30 White Blood Count 13.4 K/UL (4.8-10.8) H 12.3 K/UL (4.8-10.8) H Red Blood Count 4.53 M/UL (4.20-5.40) 4.42 M/UL (4.20-5.40) Hemoglobin 12.4 G/DL (12.0-16.0) 12.5 G/DL (12.0-16.0) Hematocrit 38.7 % (37.0-47.0) 36.2 % (37.0-47.0) L Mean Corpuscular Volume 85 FL (80-99) 82 FL (80-99) Mean Corpuscular Hemoglobin 27.3 PG (27.0-31.0) 28.3 PG (27.0-31.0) Mean Corpuscular Hemoglobin Concent 31.9 G/DL (32.0-36.0) L 34.6 G/DL (32.0-36.0) Red Cell Distribution Width 16.4 % (11.6-14.8) H 14.2 % (11.6-14.8) Platelet Count 369 K/UL (150-450) 344 K/UL (150-450) Mean Platelet Volume 7.3 FL (6.5-10.1) 6.3 FL (6.5-10.1) L Neutrophils (%) (Auto) 76.9 % (45.0-75.0) H 59.4 % (45.0-75.0) Lymphocytes (%) (Auto) 11.4 % (20.0-45.0) L 28.1 % (20.0-45.0) Monocytes (%) (Auto) 7.3 % (1.0-10.0) 7.6 % (1.0-10.0) Eosinophils (%) (Auto) 3.8 % (0.0-3.0) H 4.3 % (0.0-3.0) H Basophils (%) (Auto) 0.7 % (0.0-2.0) 0.6 % (0.0-2.0) Prothrombin Time 9.7 SEC (9.30-11.50) Prothrombin Time INR 0.9 (0.9-1.1) Activated Partial Thromboplast Time 27 SEC (23-33) Sodium Level 146 MMOL/L (136-145) H 141 MMOL/L (136-145) Potassium Level 3.2 MMOL/L (3.5-5.1) L 4.1 MMOL/L (3.5-5.1) Chloride Level 108 MMOL/L (98-107) H 104 MMOL/L (98-107) Carbon Dioxide Level 25 MMOL/L (21-32) 27 MMOL/L (21-32) Anion Gap 13 mmol/L (5-15) 10 mmol/L (5-15) Blood Urea Nitrogen 10 mg/dL (7-18) 7 mg/dL (7-18) Creatinine 1.1 MG/DL (0.55-1.30) 0.8 MG/DL (0.55-1.30) Estimated Glomerular Filtration Rate 57.4 mL/min (>60) > 60 mL/min (>60) Glucose Level 140 MG/DL (74-106) H 113 MG/DL (74-106) H Lactic Acid Level 1.20 mmol/L (0.4-2.0) Calcium Level 9.3 MG/DL (8.5-10.1) 9.8 MG/DL (8.5-10.1) Total Bilirubin 0.4 MG/DL (0.2-1.0) Aspartate Amino Transferase (AST) 13 U/L (15-37) L Alanine Aminotransferase (ALT) 25 U/L (12-78) Alkaline Phosphatase 63 U/L (46-116) Total Creatine Kinase 68 U/L (26-308) Creatine Kinase MB 1.6 NG/ML (0.0-3.6) Creatine Kinase MB Relative Index 2.3 Troponin I 0.000 ng/mL (0.000-0.056) Pro-B-Type Natriuretic Peptide 276 pg/mL (0-125) H Total Protein 7.0 G/DL (6.4-8.2) Albumin 3.3 G/DL (3.4-5.0) L Globulin 3.7 g/dL Albumin/Globulin Ratio 0.9 (1.0-2.7) L Urine Color Yellow Urine Appearance Cloudy Urine pH 5 (4.5-8.0) Urine Specific [place] 1.015 (1.005-1.035) Urine Protein 3+ (NEGATIVE) H Urine Glucose (UA) 2+ (NEGATIVE) H Urine Ketones 1+ (NEGATIVE) H Urine Blood 2+ (NEGATIVE) H Urine Nitrite Positive (NEGATIVE) H Urine Bilirubin Negative (NEGATIVE) Urine Urobilinogen Normal MG/DL (0.0-1.0) Urine Leukocyte Esterase 3+ (NEGATIVE) H Urine RBC 15-20 /HPF (0 - 2) H Urine WBC 60-80 /HPF (0 - 2) H Urine Squamous Epithelial Cells Few /LPF (NONE/OCC) Urine Bacteria Many /HPF (NONE) H EKG Diagnostic Results Rate: normal - 92 Rhythm: NSR ST Segments: no acute changes Last Vital Signs Date Time Temp Pulse Resp B/P (MAP) Pulse Ox O2 Delivery O2 Flow Rate FiO2 05/27/19 18:01 93 18 Room Air 05/27/19 18:01 98.2 128/78 99 Status: unchanged Disposition: ADMITTED INPATIENT Condition: Stable Referrals: NON PHYSICIAN (PCP) Korey Norman MD May 27, 2019 18:42
--- NOTE | 2019-05-27 18:50 | NUR ---
ED Nurse Note: obtained urine specimen via straight cath. Pt on bed, awake and alert, VSS, on RA; NAD noted. Safety measures assured.
[2019-05-27 19:06] LABS: INR 0.9 (0.9-1.1)
--- NOTE | 2019-05-27 19:08 | NUR ---
ED Nurse Note: Report received from PACHECO Jefferson. Pt resting in bed, VSS no ss of distress noted.
[2019-05-27 19:09] LABS: BASOPHILS % (AUTO) 0.7 % (0.0-2.0); EOSINOPHILS % (AUTO) 3.8 % (0.0-3.0); HEMATOCRIT 38.7 % (37.0-47.0); HEMOGLOBIN 12.4 G/DL (12.0-16.0); LYMPHOCYTES % (AUTO) 11.4 % (20.0-45.0); MEAN CORPUSCULAR VOLUME 85 FL (80-99); MONOCYTES % (AUTO) 7.3 % (1.0-10.0); NEUTROPHILS % (AUTO) 76.9 % (45.0-75.0); PLATELET COUNT 369 K/UL (150-450); RED BLOOD COUNT 4.53 M/UL (4.20-5.40); RED CELL DISTRIBUTION WIDTH 16.4 % (11.6-14.8); WHITE BLOOD COUNT 13.4 K/UL (4.8-10.8)
[2019-05-27 19:14] LABS: ANION GAP 13 mmol/L (5-15); BLOOD UREA NITROGEN 10 mg/dL (7-18); CALCIUM 9.3 MG/DL (8.5-10.1); CARBON DIOXIDE 25 MMOL/L (21-32); CHLORIDE 108 MMOL/L (98-107); CREATININE 1.1 MG/DL (0.55-1.30); POTASSIUM 3.2 MMOL/L (3.5-5.1); SODIUM 146 MMOL/L (136-145)
[2019-05-27 19:15] LABS: APPEARANCE,URINE CLOUDY; BILIRUBIN, URINE NEGATIVE (NEGATIVE); GLUCOSE, URINE (UA) 2+ (NEGATIVE); KETONES,URINE 1+ (NEGATIVE); LEUKOCYTE ESTERASE ,URINE 3+ (NEGATIVE); NITRITE,URINE POSITIVE (NEGATIVE); PH,URINE 5 (4.5-8.0); PROTEIN,URINE 3+ (NEGATIVE); UROBILINOGEN,URINE NORMAL MG/DL (0.0-1.0)
[2019-05-27 19:27] LABS: ALANINE AMINOTRANSFERASE 25 U/L (12-78); ALBUMIN 3.3 G/DL (3.4-5.0); ALBUMIN/GLOBULIN RATIO 0.9 (1.0-2.7); ALKALINE PHOSPHATASE 63 U/L (46-116); ASPARTATE AMINO TRANSFERASE 13 U/L (15-37); BILIRUBIN,TOTAL 0.4 MG/DL (0.2-1.0); CKMB 1.6 NG/ML (0.0-3.6); CREATINE KINASE 68 U/L (26-308)
[2019-05-27 19:30] LABS: COLOR,URINE YELLOW
[2019-05-27] MEDS ORDERED: cefTRIAXone 1 GM in NS 55 ML IVPB ONE (19:45)
--- NOTE | 2019-05-27 20:10 | NUR ---
ED Nurse Note: all medications administered. pt tolerated well. no ss of distress noted. pt aao x 4, ambulatory, skin in tact.
[2019-05-27 20:45] VITALS: BP 127/74
--- NOTE | 2019-05-27 22:10 | NUR ---
ED Nurse Note: Assisted pt to utilze commode. Pt tolerated well and maintained safety at all times. pt assisted back into bed with no complications.
[2019-05-27 22:32] VITALS: BP 125/70
[2019-05-28] VITALS (12 sets, daily range): BP systolic 118–154; BP diastolic 62–81
--- NOTE | 2019-05-28 00:38 | NUR ---
ED Nurse Note: pt moved to bed 04 in stable condition, vss no ss of distress noted. report given to PACHECO Jefferson
--- NOTE | 2019-05-28 00:45 | NUR ---
ED Nurse Note: Recieved pt from TX room in ED, recieved report from PACHECO Luu, pt is to be admitted, no beds til am, will resume care, pt moved to bed 4, pt is wake, alert and oriented x 4, denies pain, pt placed on striker bed and continuous cardiac monitoring, IV site patent, no sob or labored breathing noted, pt assisted with bathroom use, does not walk well, used bedside commode without complications, will resume care as ordered and continue to closely monitor.
[2019-05-28] MEDS ORDERED: DiphenhydrAMINE 25mg Tab ORAL PRN (01:30)
--- NOTE | 2019-05-28 03:00 | NUR ---
ED Nurse Note: Pt continues to rest quietly in bed, on cardiac monitoring, no acute cahnges or increased distress, NSR on monitoring, IV site intact and patent, pt using bedside commode without complications, will continue to closely monitor, pt waiting for hospital room for admission.
--- NOTE | 2019-05-28 05:25 | NUR ---
ED Nurse Note: Pt awakened in bed with sudden, severe chest pain at 9/10, pt remains in NSR on monitoring, immediately done repeat ekg, am labs done including am blood sugar level, MD immediately aware, pt decliness pain med, states just wants to make sure she is ok.
--- NOTE | 2019-05-28 05:59 | History and Physical ---
History of Present Illness General Date patient seen: May 28, 2019 Time patient seen: 07:20 Reason for Hospitalization: Generalized WeaknessUrinary tract infection Present Illness HPI Patient is an 83 year old female with HLD, HTN, DMII, history of bladder CA p/w abdominal pain x 2 days. Patient reports of sharp, midabdomen and epigastric pain. She rates the pain as 7/10 and further describes it as non-radiating. patient also reports of burning and pain on urination. She denies any hematuria. Patient denies any fever, chills, nausea, vomiting, diarrhea, melena or hematochezia. On arrival to the ED, vitals were within the normal range. Labs remarkable for leukocytosis 13.2, hypokalemia: 3.2. The UA significant for bacteriuria and pyuria. Patient is begin admitted for further observation and medical management. Allergies: Coded Allergies: CODEINE (Verified Allergy, Mild, 10/14/10) IBUPROFEN (Unverified Allergy, Unknown, 09/03/18) COVID-19 Screening Contact w/high risk pt: No Recent Travel to affected area: No Experienced COVID-19 symptoms?: No Medication History Scheduled Amlodipine Besylate* (Amlodipine Besylate*), 10 MG ORAL DAILY, (Reported) Aspirin Ec* (Aspirin Ec*), 81 MG ORAL DAILY, (Reported) Atenolol* (Tenormin*), 50 MG ORAL DAILY, (Reported) Atorvastatin Calcium* (Atorvastatin Calcium*), 10 MG ORAL BEDTIME, (Reported) Famotidine (Acid Radio Journalist), 20 MG ORAL DAILY, (Reported) Gabapentin* (Gabapentin*), 300 MG ORAL BEDTIME, (Reported) Memantine Hcl* (Namenda*), 10 MG ORAL DAILY, (Reported) Naproxen* (Naproxen*), 500 MG ORAL DAILY, (Reported) Omeprazole (Omeprazole), 40 MG ORAL DAILY Potassium Chloride* (K-Dur*), 10 MEQ ORAL DAILY, (Reported) Sitagliptin (Januvia), 50 MG ORAL DAILY, (Reported) [Plaquenil ], 200 MG PO DAILY, (Reported) Scheduled PRN Hydrocodone Bit/Acetaminophen 10-325* ([place] 10-325*), 1 TAB ORAL Q6H PRN for For Pain, (Reported) Patient History Healthcare decision maker Resuscitation status Advanced Directive on File Review of Systems Constitutional: Reports: no symptoms Eye: Reports: no symptoms ENT: Reports: no symptoms Respiratory: Reports: no symptoms Cardiovascular: Reports: no symptoms Gastrointestinal: Reports: abdominal pain Genitourinary: Reports: dysuria, frequency, pain, urgency Musculoskeletal: Reports: no symptoms Skin: Reports: no symptoms Psychiatric: Reports: no symptoms Neurological: Reports: no symptoms Endocrine: Reports: no symptoms Hematologic/Lymphatic: Reports: no symptoms Physical Exam General Appearance: no apparent distress, alert Lines, tubes and drains: peripheral HEENT: normocephalic, atraumatic, mucous membranes moist Neck: non-tender, supple, normal inspection Respiratory/Chest: chest wall non-tender, lungs clear, no respiratory distress Cardiovascular/Chest: normal peripheral pulses, normal rate, regular rhythm Abdomen: normal bowel sounds, other - suprapubic tenderness; midabdomen tender to palpation. 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 normal Musculoskeletal: normal muscle bulk Last 24 Hour Vital Signs Date Time Temp Pulse Resp B/P (MAP) Pulse Ox O2 Delivery O2 Flow Rate FiO2 05/28/19 05:05 98.2 73 16 134/70 100 Room Air 05/28/19 03:30 98.2 79 16 129/81 99 Room Air 05/28/19 02:00 98.2 81 16 141/66 100 Room Air 05/28/19 01:00 98.2 88 16 154/77 99 Room Air 05/27/19 22:32 98.2 85 16 125/70 99 Room Air 05/27/19 20:45 98.2 87 16 127/74 99 Room Air 05/27/19 18:01 93 18 Room Air 05/27/19 18:01 98.2 92 18 128/78 99 Room Air 05/27/19 17:38 98.2 93 18 128/78 (95) 99 Room Air Laboratory Tests Test 05/27/19 18:15 05/27/19 18:50 White Blood Count 13.4 K/UL (4.8-10.8) H Red Blood Count 4.53 M/UL (4.20-5.40) Hemoglobin 12.4 G/DL (12.0-16.0) Hematocrit 38.7 % (37.0-47.0) Mean Corpuscular Volume 85 FL (80-99) Mean Corpuscular Hemoglobin 27.3 PG (27.0-31.0) Mean Corpuscular Hemoglobin Concent 31.9 G/DL (32.0-36.0) L Red Cell Distribution Width 16.4 % (11.6-14.8) H Platelet Count 369 K/UL (150-450) Mean Platelet Volume 7.3 FL (6.5-10.1) Neutrophils (%) (Auto) 76.9 % (45.0-75.0) H Lymphocytes (%) (Auto) 11.4 % (20.0-45.0) L Monocytes (%) (Auto) 7.3 % (1.0-10.0) Eosinophils (%) (Auto) 3.8 % (0.0-3.0) H Basophils (%) (Auto) 0.7 % (0.0-2.0) Prothrombin Time 9.7 SEC (9.30-11.50) Prothromb Time International Ratio 0.9 (0.9-1.1) Activated Partial Thromboplast Time 27 SEC (23-33) Sodium Level 146 MMOL/L (136-145) H Potassium Level 3.2 MMOL/L (3.5-5.1) L Chloride Level 108 MMOL/L (98-107) H Carbon Dioxide Level 25 MMOL/L (21-32) Anion Gap 13 mmol/L (5-15) Blood Urea Nitrogen 10 mg/dL (7-18) Creatinine 1.1 MG/DL (0.55-1.30) Estimat Glomerular Filtration Rate 57.4 mL/min (>60) Glucose Level 140 MG/DL (74-106) H Lactic Acid Level 1.20 mmol/L (0.4-2.0) Calcium Level 9.3 MG/DL (8.5-10.1) Total Bilirubin 0.4 MG/DL (0.2-1.0) Aspartate Amino Transf (AST/SGOT) 13 U/L (15-37) L Alanine Aminotransferase (ALT/SGPT) 25 U/L (12-78) Alkaline Phosphatase 63 U/L (46-116) Total Creatine Kinase 68 U/L (26-308) Creatine Kinase MB 1.6 NG/ML (0.0-3.6) Creatine Kinase MB Relative Index 2.3 Troponin I 0.000 ng/mL (0.000-0.056) Pro-B-Type Natriuretic Peptide 276 pg/mL (0-125) H Total Protein 7.0 G/DL (6.4-8.2) Albumin 3.3 G/DL (3.4-5.0) L Globulin 3.7 g/dL Albumin/Globulin Ratio 0.9 (1.0-2.7) L Urine Color Yellow Urine Appearance Cloudy Urine pH 5 (4.5-8.0) Urine Specific [place] 1.015 (1.005-1.035) Urine Protein 3+ (NEGATIVE) H Urine Glucose (UA) 2+ (NEGATIVE) H Urine Ketones 1+ (NEGATIVE) H Urine Blood 2+ (NEGATIVE) H Urine Nitrite Positive (NEGATIVE) H Urine Bilirubin Negative (NEGATIVE) Urine Urobilinogen Normal MG/DL (0.0-1.0) Urine Leukocyte Esterase 3+ (NEGATIVE) H Urine RBC 15-20 /HPF (0 - 2) H Urine WBC 60-80 /HPF (0 - 2) H Urine Squamous Epithelial Cells Few /LPF (NONE/OCC) Urine Bacteria Many /HPF (NONE) H Height (Feet): 5 Height (Inches): 5.00 Weight (Pounds): 175 Medications Current Medications Medications (Trade) Dose Ordered Sig/[place] Route PRN Reason Start Time Stop Time Status Last Admin Dose Admin Acetaminophen (Tylenol) 650 mg Q4H PRN ORAL Mild Pain (Pain Scale 1-3) 05/28/19 01:30 06/27/19 01:29 Amlodipine Besylate (Norvasc) 10 mg DAILY ONCE ORAL 05/28/19 09:00 05/28/19 09:01 UNV Aspirin (ASA) 81 mg DAILY ONCE ORAL 05/28/19 09:00 05/28/19 09:01 UNV Atenolol (Tenormin) 50 mg DAILY ONCE ORAL 05/28/19 09:00 05/28/19 09:01 UNV Atorvastatin Calcium (Lipitor) 10 mg BEDTIME ONCE ORAL 05/28/19 21:00 05/28/19 21:01 UNV Ceftriaxone Sodium 1 gm/ Sodium Chloride 55 ml @ 110 mls/hr Q24HRS ONCE IVPB 05/28/19 01:45 05/28/19 02:14 UNV Dextrose (Dextrose 50%) 25 ml Q30M PRN IV Hypoglycemia 05/28/19 01:30 08/26/19 01:29 Dextrose (Dextrose 50%) 50 ml Q30M PRN IV Hypoglycemia 05/28/19 01:30 08/26/19 01:29 Diphenhydramine HCl (Benadryl) 25 mg Q6H PRN ORAL Itching/Pruritis 05/28/19 01:30 06/27/19 01:29 Heparin Sodium (Porcine) (Heparin 5000 units/ml) 5,000 units EVERY 12 HOURS SUBQ 05/28/19 09:00 07/12/19 08:59 UNV Ondansetron HCl (Zofran) 4 mg Q6H PRN IVP Nausea & Vomiting 05/28/19 01:30 06/27/19 01:29 Assessment/Plan Assessment/Plan: 83 YO F with HTN, HLD, DMII presenting with 4-5 day onset of worsening abdominal pain. Patient also has a hx of prior hospital admission for emphysematous cystitis. #Abdominal pain #Urinary Tract Infection #Leukocytosis #History of emphysematous cystitis -UA significant for many bacteria, 3+ LE, >60 WBC, 2+ blood -Serum WBC: 13.4 -No evidence of lactic acidosis. -Follow Ucx. -s/p 1 dose of IV Rocephin in ED -Based on prior urine culture studies (Klebsiella pneumoniae in February 2019), will continue ton IV Rocephin -Dr. Ashraf of [place] to be consulted. Appreciate further recommendations. #Hypokalemia: -Serum K: 3.2 -s/p repletion -Continue to monitor. #Type II DM: -Insulin Sliding Scale -Diabetic Diet. #HTN #HLD -Resume home amlodipine, atenolol and atorvastatin. #History of Bladder CA: -Outpatient follow up with urology. -No acute issues. I spent 70 minutes on this patient's case, and >50% was dedicated to counseling and/or care coordination. Additional 32 minutes spent on chart review including prior notes, imaging studies, and laboratory values Ilya Oquendo M.D. May 28, 2019 05:59
--- NOTE | 2019-05-28 07:12 | NUR ---
HAND-OFF: Report given to PACHECO Alberto.
--- NOTE | 2019-05-28 07:26 | NUR ---
ED Nurse Note: Report received from PACHECO Jefferson. Pt in stable condition, lying in bed in semi-fowlers. Respirations even and unlabored on room air. Vitals stable as documented. No signs of acute distress noted.
[2019-05-28] MEDS: Aspirin Baby 81mg ORAL SCH (08:26)
[2019-05-28] MEDS: Heparin 5000 units/ml inj SUBQ SCH ×2 (08:28→20:41)
--- NOTE | 2019-05-28 08:59 | NUR ---
ED Nurse Note: blood sent to lab
--- NOTE | 2019-05-28 10:51 | Diagnostic Imaging Report ---
Indication: Shortness of breath Technique: One view of the chest Comparison: 10/05/2018 Findings: Lungs pleural spaces are clear. The heart size is upper limits normal. The aorta is tortuous and ectatic. Previously demonstrated interstitial congestion is not evident currently Impression: No acute process
--- NOTE | 2019-05-28 12:21 | Infectious Diseases Prog Note ---
Assessment/Plan Assessment/Plan Full consult dictated: A) 1) uti, possible sepsis, leukocytosis 2) pmh noted 3) allergies - nkda P) 1) ceftriaxone 2) check urine culture 3) monitor labs 4) thank you Subjective Allergies: Coded Allergies: CODEINE (Verified Allergy, Mild, 10/14/10) IBUPROFEN (Unverified Allergy, Unknown, 09/03/18) Objective Vital Signs Last 24 Hour Vital Signs Date Time Temp Pulse Resp B/P (MAP) Pulse Ox O2 Delivery O2 Flow Rate FiO2 05/28/19 10:12 74 16 118/71 100 Room Air 05/28/19 08:26 85 141/73 05/28/19 08:26 85 141/73 05/28/19 08:00 98.0 85 16 141/73 100 Room Air 05/28/19 05:05 98.2 73 16 134/70 100 Room Air 05/28/19 03:30 98.2 79 16 129/81 99 Room Air 05/28/19 02:00 98.2 81 16 141/66 100 Room Air 05/28/19 01:00 98.2 88 16 154/77 99 Room Air 05/27/19 22:32 98.2 85 16 125/70 99 Room Air 05/27/19 20:45 98.2 87 16 127/74 99 Room Air 05/27/19 18:01 93 18 Room Air 05/27/19 18:01 98.2 92 18 128/78 99 Room Air 05/27/19 17:38 98.2 93 18 128/78 (95) 99 Room Air Height (Feet): 5 Height (Inches): 5.00 Weight (Pounds): 175 Microbiology Date/Time Source Procedure Growth Status 05/27/19 18:50 Urine,Catheterized Urine Culture - Preliminary Resulted Laboratory Tests Test 05/27/19 18:15 05/27/19 18:50 White Blood Count 13.4 K/UL (4.8-10.8) H Red Blood Count 4.53 M/UL (4.20-5.40) Hemoglobin 12.4 G/DL (12.0-16.0) Hematocrit 38.7 % (37.0-47.0) Mean Corpuscular Volume 85 FL (80-99) Mean Corpuscular Hemoglobin 27.3 PG (27.0-31.0) Mean Corpuscular Hemoglobin Concent 31.9 G/DL (32.0-36.0) L Red Cell Distribution Width 16.4 % (11.6-14.8) H Platelet Count 369 K/UL (150-450) Mean Platelet Volume 7.3 FL (6.5-10.1) Neutrophils (%) (Auto) 76.9 % (45.0-75.0) H Lymphocytes (%) (Auto) 11.4 % (20.0-45.0) L Monocytes (%) (Auto) 7.3 % (1.0-10.0) Eosinophils (%) (Auto) 3.8 % (0.0-3.0) H Basophils (%) (Auto) 0.7 % (0.0-2.0) Prothrombin Time 9.7 SEC (9.30-11.50) Prothromb Time International Ratio 0.9 (0.9-1.1) Activated Partial Thromboplast Time 27 SEC (23-33) Sodium Level 146 MMOL/L (136-145) H Potassium Level 3.2 MMOL/L (3.5-5.1) L Chloride Level 108 MMOL/L (98-107) H Carbon Dioxide Level 25 MMOL/L (21-32) Anion Gap 13 mmol/L (5-15) Blood Urea Nitrogen 10 mg/dL (7-18) Creatinine 1.1 MG/DL (0.55-1.30) Estimat Glomerular Filtration Rate 57.4 mL/min (>60) Glucose Level 140 MG/DL (74-106) H Lactic Acid Level 1.20 mmol/L (0.4-2.0) Calcium Level 9.3 MG/DL (8.5-10.1) Total Bilirubin 0.4 MG/DL (0.2-1.0) Aspartate Amino Transf (AST/SGOT) 13 U/L (15-37) L Alanine Aminotransferase (ALT/SGPT) 25 U/L (12-78) Alkaline Phosphatase 63 U/L (46-116) Total Creatine Kinase 68 U/L (26-308) Creatine Kinase MB 1.6 NG/ML (0.0-3.6) Creatine Kinase MB Relative Index 2.3 Troponin I 0.000 ng/mL (0.000-0.056) Pro-B-Type Natriuretic Peptide 276 pg/mL (0-125) H Total Protein 7.0 G/DL (6.4-8.2) Albumin 3.3 G/DL (3.4-5.0) L Globulin 3.7 g/dL Albumin/Globulin Ratio 0.9 (1.0-2.7) L Urine Color Yellow Urine Appearance Cloudy Urine pH 5 (4.5-8.0) Urine Specific [place] 1.015 (1.005-1.035) Urine Protein 3+ (NEGATIVE) H Urine Glucose (UA) 2+ (NEGATIVE) H Urine Ketones 1+ (NEGATIVE) H Urine Blood 2+ (NEGATIVE) H Urine Nitrite Positive (NEGATIVE) H Urine Bilirubin Negative (NEGATIVE) Urine Urobilinogen Normal MG/DL (0.0-1.0) Urine Leukocyte Esterase 3+ (NEGATIVE) H Urine RBC 15-20 /HPF (0 - 2) H Urine WBC 60-80 /HPF (0 - 2) H Urine Squamous Epithelial Cells Few /LPF (NONE/OCC) Urine Bacteria Many /HPF (NONE) H Current Medications Medications (Trade) Dose Ordered Sig/[place] Route PRN Reason Start Time Stop Time Status Last Admin Dose Admin Acetaminophen (Tylenol) 650 mg Q4H PRN ORAL Mild Pain (Pain Scale 1-3) 05/28/19 01:30 06/27/19 01:29 Amlodipine Besylate (Norvasc) 10 mg DAILY ORAL 05/28/19 09:00 06/27/19 08:59 05/28/19 08:26 Aspirin (ASA) 81 mg DAILY ORAL 05/28/19 09:00 07/12/19 08:59 05/28/19 08:26 Atenolol (Tenormin) 50 mg DAILY ORAL 05/28/19 09:00 06/27/19 08:59 05/28/19 08:26 Atorvastatin Calcium (Lipitor) 10 mg BEDTIME ORAL 05/28/19 21:00 08/26/19 20:59 Ceftriaxone Sodium 1 gm/ Sodium Chloride 55 ml @ 110 mls/hr Q24H IVPB 05/28/19 20:00 06/04/19 19:59 Dextrose (Dextrose 50%) 25 ml Q30M PRN IV Hypoglycemia 05/28/19 01:30 08/26/19 01:29 Dextrose (Dextrose 50%) 50 ml Q30M PRN IV Hypoglycemia 05/28/19 01:30 08/26/19 01:29 Diphenhydramine HCl (Benadryl) 25 mg Q6H PRN ORAL Itching/Pruritis 05/28/19 01:30 06/27/19 01:29 Heparin Sodium (Porcine) (Heparin 5000 units/ml) 5,000 units EVERY 12 HOURS SUBQ 05/28/19 09:00 07/12/19 08:59 05/28/19 08:28 Ondansetron HCl (Zofran) 4 mg Q6H PRN IVP Nausea & Vomiting 05/28/19 01:30 06/27/19 01:29 Chad Swanson MD May 28, 2019 12:21
--- NOTE | 2019-05-28 15:15 | NUR ---
ED Nurse Note: received patient from efren carrizales. patient sleeping in bed with no acute distress. ao4. nad. vss. patient in gown on striker bed. all safety measures met. discussed plan of care with patient; aware of pending admission.
--- NOTE | 2019-05-28 15:15 | NUR ---
HAND-OFF: Report given to Gabe Humphreys RN.
--- NOTE | 2019-05-28 17:00 | NUR ---
ED Nurse Note: called dietary. left message for pt cardiac meal ; waiting for callback.
--- NOTE | 2019-05-28 17:24 | NUR ---
ED Nurse Note: pt received meal. assisted patient with meal set up at bedside. patient presents with full range of motion; able to eat independently.
--- NOTE | 2019-05-28 19:00 | NUR ---
HAND-OFF: Report given to Francisca BERGMAN. Patient in stable condition. Endorsed pending admission.
--- NOTE | 2019-05-28 19:00 | NUR ---
ED Nurse Note: Report received from Gabe Humphreys RN. Pt resting in bed in stable condition, VSS no ss of distress noted. Pt is pleasant, aao x 4. Will continue to monitor
[2019-05-28] MEDS: cefTRIAXone 1 GM in NS 55 ML IVPB SCH (20:40)
--- NOTE | 2019-05-28 21:30 | NUR ---
ED Nurse Note: all night time medications administered, pt tolerated well. PRN benadryl adminstered, ERMD aware. No ss of distress noted. pt resting comfortably in bed.
--- NOTE | 2019-05-28 22:15 | NUR ---
ED Nurse Note: Pt requested assistance to bedside commode, assistance provided. Pt voided and returned to bed with no complications. Pt resting in bed comfortably. Will continue to monitor.
--- NOTE | 2019-05-28 22:59 | NUR ---
ED Nurse Note: report given to PACHECO Brewer.
--- NOTE | 2019-05-28 23:00 | NUR ---
ER DISCHARGE NOTE: Patient is cleared to be discharged to telemetry unit per ERMD, pt is aox4, on room air, with stable vital signs. pt was able to verbalize understanding. pt is able to ambulate with minimal assistance. pt took all belongings. Report given to PACHECO Brewer. Pt transferred to unit with 1 RN and 1 VERIFICATION MANAGER in stable condition.
--- NOTE | 2019-05-28 23:04 | NUR ---
NURSE NOTES: Received report from SHAHLA Zaragoza RN. Patient was transferred to Telemetry from ER via [place] without incident. No signs of acute distress noted; denies pain at this time. AOx4; able to make needs known. Ambulates with some assistance. Checked IV site; patent and flushed. No erythema, bleeding, or infiltration noted. Belongings list checked with patient and transferring RN. Patient refuses to have her home medications sent to pharmacy. Risks and benefits explained; still refusing at this time. Skin assessment performed; no wounds noted. Skin is intact. Bed at lowest position, brakes on, siderails up x3. Call light within reach. Will continue to monitor.
[2019-05-29] VITALS (7 sets, daily range): BP systolic 136–149; BP diastolic 68–85
[2019-05-29 07:09] LABS: ANION GAP 10 mmol/L (5-15); BLOOD UREA NITROGEN 7 mg/dL (7-18); CALCIUM 9.8 MG/DL (8.5-10.1); CARBON DIOXIDE 27 MMOL/L (21-32); CHLORIDE 104 MMOL/L (98-107); CREATININE 0.8 MG/DL (0.55-1.30); POTASSIUM 4.1 MMOL/L (3.5-5.1); SODIUM 141 MMOL/L (136-145)
[2019-05-29 07:14] LABS: BASOPHILS % (AUTO) 0.6 % (0.0-2.0); EOSINOPHILS % (AUTO) 4.3 % (0.0-3.0); HEMATOCRIT 36.2 % (37.0-47.0); HEMOGLOBIN 12.5 G/DL (12.0-16.0); LYMPHOCYTES % (AUTO) 28.1 % (20.0-45.0); MEAN CORPUSCULAR VOLUME 82 FL (80-99); MONOCYTES % (AUTO) 7.6 % (1.0-10.0); NEUTROPHILS % (AUTO) 59.4 % (45.0-75.0); PLATELET COUNT 344 K/UL (150-450); RED BLOOD COUNT 4.42 M/UL (4.20-5.40); RED CELL DISTRIBUTION WIDTH 14.2 % (11.6-14.8); WHITE BLOOD COUNT 12.3 K/UL (4.8-10.8)
--- NOTE | 2019-05-29 07:23 | NUR ---
HAND-OFF: Report given to PACHECO Glez. Patient is awake eating breakfast. In stable condition.
--- NOTE | 2019-05-29 07:45 | NUR ---
Awake ,Oriented x4, able to communicate needs, ate breakfast, mild pain on Right Knee. Right Knee remains swollen. call light within reach.
--- NOTE | 2019-05-29 07:52 | General Progress Note ---
Assessment/Plan Assessment/Plan: 83 YO F with HTN, HLD, DMII presenting with 4-5 day onset of worsening abdominal pain. Patient also has a hx of prior hospital admission for emphysematous cystitis. #Abdominal pain - resolved #Sepsis -improved #Urinary Tract Infection #Leukocytosis #History of emphysematous cystitis -UA significant for many bacteria, 3+ LE, >60 WBC, 2+ blood -Serum WBC: 13.4 -H/o UCx positive for Klebsiella pneumoniae in February 2019 -No evidence of lactic acidosis. -05/27 Ucx: prelim GN baccili -05/27 BCx: NGTD -H/o urine culture studies (Klebsiella pneumoniae in February 2019) -ID, Dr. Ashraf, following: CTX #Hypokalemia - resolved -s/p repletion -Continue to monitor, replace PRN #Type II DM: -Insulin Sliding Scale -Diabetic Diet. #HTN #HLD -Resume home amlodipine, atenolol and atorvastatin. #History of Bladder CA: -Outpatient follow up with urology. -No acute issues. Time spent on encounter: 36 mins, >50% on counseling, coordination of care. Additional 30 minutes spent reviewing chart, previous H&P, progress notes, labs/ micro and radiographic findings. Time of note doesn't reflect time of encounter. Subjective Allergies: Coded Allergies: CODEINE (Verified Allergy, Mild, 10/14/10) IBUPROFEN (Unverified Allergy, Unknown, 09/03/18) Subjective F/u for UTI. No acute events overnight. Pt denies any pain, CP, SOB at this time. Objective Last 24 Hour Vital Signs Date Time Temp Pulse Resp B/P (MAP) Pulse Ox O2 Delivery O2 Flow Rate FiO2 05/29/19 04:00 77 05/29/19 04:00 98.2 90 18 139/85 (103) 93 05/29/19 01:39 Room Air 05/29/19 00:36 80 05/29/19 00:00 97.8 82 17 148/76 (100) 98 05/28/19 23:00 98.2 76 15 149/70 99 Room Air 05/28/19 22:55 98.2 76 15 149/70 100 Room Air 05/28/19 21:50 98.2 78 16 142/70 100 Room Air 05/28/19 19:00 98.2 79 15 133/62 100 Room Air 05/28/19 17:30 98.2 84 18 130/67 98 Room Air 05/28/19 15:15 98.0 77 15 133/64 100 Room Air 05/28/19 12:00 79 16 124/78 99 Room Air 05/28/19 10:12 74 16 118/71 100 Room Air 05/28/19 08:26 85 141/73 05/28/19 08:26 85 141/73 05/28/19 08:00 98.0 85 16 141/73 100 Room Air Laboratory Tests 05/29/19 05:30: White Blood Count 12.3H, Red Blood Count 4.42, Hemoglobin 12.5, Hematocrit 36.2L , Mean Corpuscular Volume 82, Mean Corpuscular Hemoglobin 28.3, Mean Corpuscular Hemoglobin Concent 34.6, Red Cell Distribution Width 14.2, Platelet Count 344, Mean Platelet Volume 6.3L, Neutrophils (%) (Auto) 59.4, Lymphocytes ( %) (Auto) 28.1, Monocytes (%) (Auto) 7.6, Eosinophils (%) (Auto) 4.3H, Basophils (%) (Auto) 0.6, Sodium Level 141, Potassium Level 4.1, Chloride Level 104, Carbon Dioxide Level 27, Anion Gap 10, Blood Urea Nitrogen 7, Creatinine 0.8, Estimat Glomerular Filtration Rate > 60, Glucose Level 113H, Calcium Level 9.8 Height (Feet): 5 Height (Inches): 5.00 Weight (Pounds): 175 Objective General: NAD, A&O x 3, sitting up in bed comfortably HEENT: NCAT, EOMi, dry MM CV: RRR, no murmurs, rubs, or gallops Pulm: CTAB, No wheezes, rhonchi, or rales, no accessory muscle usage or conversational dyspnea GI: Soft, nontender, nondistended, bowel sounds present Ext: No lower extremity edema bilaterally Skin: no rashes lesions or ulcers Irwin Betts M.D. May 29, 2019 07:52
[2019-05-29] MEDS ORDERED: HydrALAZINE 10mg Tab ORAL PRN (08:00)
--- NOTE | 2019-05-29 08:46 | NUR ---
Patient found on floor by EDGING SUPERVISOR, Pt. stated she's trying to get to Bedside Commode, she's not able to hold on with her right arm so she sat down on the floor, denies any pain, denies hurting any part of her body. assisted up to bedside commode with 2 assists. Reminded to call nurse if she needs help. verbalized understanding.
[2019-05-29] MEDS: Aspirin Baby 81mg ORAL SCH (09:01)
[2019-05-29] MEDS: Heparin 5000 units/ml inj SUBQ SCH ×2 (09:03→20:33)
--- NOTE | 2019-05-29 11:29 | NUR ---
CASE MANAGEMENT:REVIEW 83 YR OLD FEMALE BIBA FROM HOME CC: GENERALIZED WEAKNESS AND DIARRHEA. ABDOMINAL PAIN SI: DEHYDRATION. 98.3 93 18 128/78 99% ON RA WBC+13.4 K-3.2 IS: IV PEPCID X1 IV ROCEPHIN X1 K-DUR PO X1 CHEST XRAY URINE CX BLOOD CX : PRESENTED TO ER ON 05/27/19 @ 1745...ADMITTED TO TELEMETRY 05/28/19 @ 2304 05/29/19 SI: POSSIBLE SEPSIS. UTI 98.1 83 18 141/68 100% ON RA WBC+12.3 IS: IV ROCEPHIN Q24 HEPARIN SQ Q12 ASA PO QD NORVASC PO QD ATENOLOL PO QD : TELEMETRY STATUS DCP: FROM HOME PLAN: PHYSICAL THERAPY EVALUATION PENDING
--- NOTE | 2019-05-29 19:27 | NUR ---
Hand Off to Daniella BERGMAN
--- NOTE | 2019-05-29 19:38 | NUR ---
NURSE NOTES: Received report from PACHECO Glez. Patient is awake lying semi-stephenson's; resting comfortably. No signs of acute distress noted; complains of pain. AOx4; able to make needs known. Ambulates with assistance. Checked IV site; patent and flushed. No erythema, bleeding, or infiltration noted. Bedside commode easily accessible. Bed at lowest position, brakes on, siderails up x3. Call light within reach. Will continue to monitor.
--- NOTE | 2019-05-29 19:43 | NUR ---
NURSE NOTES: Called Dr. Dixon's exchange regarding order for stronger pain medication. Awaiting callback.
--- NOTE | 2019-05-29 19:46 | NUR ---
NURSE NOTES: Received new order from Dr. Oquendo for [place] 5/325 mg PO ONCE. Noted and carried out.
[2019-05-29] MEDS ORDERED: HYDROcodone/Acetamin 5/325 tab ORAL SCH (20:00)
[2019-05-29] MEDS: cefTRIAXone 1 GM in NS 55 ML IVPB SCH (20:32)
--- NOTE | 2019-05-29 21:30 | Infectious Diseases Prog Note ---
Assessment/Plan Assessment/Plan A) 1) gram neg uti, possible sepsis, leukocytosis 2) pmh noted 3) allergies - nkda P) 1) ceftriaxone 2) check final urine culture 3) monitor labs 4) will f/u Subjective Constitutional: Denies: fever HEENT: Denies: congestion Respiratory: Denies: shortness of breath Cardiovascular: Denies: chest pain Gastrointestinal/Abdominal: Denies: nausea, vomiting Genitourinary: Reports: dysuria, frequency Allergies: Coded Allergies: CODEINE (Verified Allergy, Mild, 10/14/10) IBUPROFEN (Unverified Allergy, Unknown, 09/03/18) Objective Vital Signs Last 24 Hour Vital Signs Date Time Temp Pulse Resp B/P (MAP) Pulse Ox O2 Delivery O2 Flow Rate FiO2 05/29/19 16:00 98.1 74 18 138/75 (96) 97 05/29/19 16:00 76 05/29/19 12:24 79 05/29/19 12:00 98.0 78 18 136/68 (90) 99 05/29/19 09:30 Room Air 05/29/19 09:02 86 141/74 05/29/19 09:02 86 141/74 05/29/19 08:00 98.1 86 18 141/68 (92) 100 05/29/19 08:00 83 05/29/19 04:00 77 05/29/19 04:00 98.2 90 18 139/85 (103) 93 05/29/19 01:39 Room Air 05/29/19 00:36 80 05/29/19 00:00 97.8 82 17 148/76 (100) 98 05/28/19 23:00 98.2 76 15 149/70 99 Room Air 05/28/19 22:55 98.2 76 15 149/70 100 Room Air 05/28/19 21:50 98.2 78 16 142/70 100 Room Air Height (Feet): 5 Height (Inches): 5.00 Weight (Pounds): 175 General Appearance: no acute distress HEENT: normocephalic, atraumatic, anicteric Respiratory/Chest: lungs clear, normal breath sounds, no respiratory distress Cardiovascular: normal rate, regular rhythm Abdomen: normal bowel sounds, soft, non tender, no organomegaly Microbiology Date/Time Source Procedure Growth Status 05/27/19 18:30 Blood Blood Culture - Preliminary NO GROWTH AFTER 24 HOURS Resulted 05/27/19 18:15 Blood Blood Culture - Preliminary NO GROWTH AFTER 24 HOURS Resulted 05/27/19 18:50 Urine,Catheterized Urine Culture - Preliminary Gram Negative Bacillus 1 Resulted Laboratory Tests Test 05/29/19 05:30 White Blood Count 12.3 K/UL (4.8-10.8) H Red Blood Count 4.42 M/UL (4.20-5.40) Hemoglobin 12.5 G/DL (12.0-16.0) Hematocrit 36.2 % (37.0-47.0) L Mean Corpuscular Volume 82 FL (80-99) Mean Corpuscular Hemoglobin 28.3 PG (27.0-31.0) Mean Corpuscular Hemoglobin Concent 34.6 G/DL (32.0-36.0) Red Cell Distribution Width 14.2 % (11.6-14.8) Platelet Count 344 K/UL (150-450) Mean Platelet Volume 6.3 FL (6.5-10.1) L Neutrophils (%) (Auto) 59.4 % (45.0-75.0) Lymphocytes (%) (Auto) 28.1 % (20.0-45.0) Monocytes (%) (Auto) 7.6 % (1.0-10.0) Eosinophils (%) (Auto) 4.3 % (0.0-3.0) H Basophils (%) (Auto) 0.6 % (0.0-2.0) Sodium Level 141 MMOL/L (136-145) Potassium Level 4.1 MMOL/L (3.5-5.1) Chloride Level 104 MMOL/L (98-107) Carbon Dioxide Level 27 MMOL/L (21-32) Anion Gap 10 mmol/L (5-15) Blood Urea Nitrogen 7 mg/dL (7-18) Creatinine 0.8 MG/DL (0.55-1.30) Estimat Glomerular Filtration Rate > 60 mL/min (>60) Glucose Level 113 MG/DL (74-106) H Calcium Level 9.8 MG/DL (8.5-10.1) Current Medications Medications (Trade) Dose Ordered Sig/Keny Route PRN Reason Start Time Stop Time Status Last Admin Dose Admin Acetaminophen (Tylenol) 650 mg Q4H PRN ORAL Mild Pain (Pain Scale 1-3) 05/28/19 01:30 06/27/19 01:29 Amlodipine Besylate (Norvasc) 10 mg DAILY ORAL 05/28/19 09:00 06/27/19 08:59 05/29/19 09:02 Aspirin (ASA) 81 mg DAILY ORAL 05/28/19 09:00 07/12/19 08:59 05/29/19 09:01 Atenolol (Tenormin) 50 mg DAILY ORAL 05/28/19 09:00 06/27/19 08:59 05/29/19 09:02 Atorvastatin Calcium (Lipitor) 10 mg BEDTIME ORAL 05/28/19 21:00 08/26/19 20:59 05/29/19 20:32 Ceftriaxone Sodium 1 gm/ Sodium Chloride 55 ml @ 110 mls/hr Q24H IVPB 05/28/19 20:00 06/04/19 19:59 05/29/19 20:32 Dextrose (Dextrose 50%) 25 ml Q30M PRN IV Hypoglycemia 05/28/19 01:30 08/26/19 01:29 Dextrose (Dextrose 50%) 50 ml Q30M PRN IV Hypoglycemia 05/28/19 01:30 08/26/19 01:29 Diphenhydramine HCl (Benadryl) 25 mg Q6H PRN ORAL Itching/Pruritis 05/28/19 01:30 06/27/19 01:29 05/28/19 21:28 Heparin Sodium (Porcine) (Heparin 5000 units/ml) 5,000 units EVERY 12 HOURS SUBQ 05/28/19 09:00 07/12/19 08:59 05/29/19 20:33 Hydralazine HCl (Apresoline) 10 mg Q6H PRN ORAL SBP >160 05/29/19 08:00 08/27/19 07:59 Ondansetron HCl (Zofran) 4 mg Q6H PRN IVP Nausea & Vomiting 05/28/19 01:30 06/27/19 01:29 Chad Swanson MD May 29, 2019 21:30
--- NOTE | 2019-05-29 22:55 | NUR ---
NURSE NOTES: Received report & pt from PACHECO Brewer. Pt transferred from 203-1. Pt in bed, a&ox4, in room air. No s/s of acute distress & c/o 10/10 pain at this time. Will give PRN pain med when due. Bedside commode provided. Skin check done with another RN; Skin intact. IV site intact, patent & S/L'd. Belongings re-checked & accounted for. Re-oriented to hospital facility. Bed locked & alarm on. Call light within reach. Told pt to call RN for any assistance & pt verbalized understanding. Plan of care discussed.
--- NOTE | 2019-05-29 23:04 | NUR ---
TRANSFER TO FLOOR: Report given to PACHECO Florentino. Patient was transferred to 3E Med-Surg floor from Telemetry unit without incident. No signs of acute distress noted; denies pain at this time. Patient taken off Tele box; tolerated well. Belongings list checked with patient and receiving RN. Bed at lowest position, brakes on, siderails up x3. Call light within reach.
[2019-05-30] MEDS ORDERED: DiphenhydrAMINE 25mg Tab ORAL PRN
[2019-05-30] MEDS ORDERED: HydrALAZINE 10mg Tab ORAL PRN
--- NOTE | 2019-05-30 02:45 | Consultation ---
DATE OF CONSULTATION: 05/29/2019 INFECTIOUS DISEASES CONSULTATION CONSULTING PHYSICIAN: Chad Swanson MD ATTENDING PHYSICIAN: Bentley Dixon MD REFERRING PHYSICIAN: Opal Betts DO. REASON FOR CONSULTATION: Complicated gram-negative UTI with sepsis, elevated white count. CHIEF COMPLAINT: The patient's chief complaint coming into the hospital is generalized weakness, dehydration. HISTORY OF PRESENT ILLNESS: This is a very pleasant 83-year-old female, who comes in to [facility] with dehydration and weakness. Workup shows that she has a urinalysis that had 3+ leukocyte esterase, positive nitrite, and urine culture with gram-negative organisms and elevated white count and possible sepsis. Infectious Diseases consultation was requested for the patient with complicated gram-negative UTI. The patient was started on Rocephin 1 g IV q.24 hours. The patient was seen yesterday and today. MAR was noted. Orders were noted. Notes were reviewed. Case discussed with RN. REVIEW OF SYSTEMS: As discussed, she came in with dehydration, generalized weakness. She has no fever, chills, or night sweats. Head And Neck: No head pain or neck pain. No thrush, dysphagia, headache, or neck stiffness. Cardiac: No chest pain or palpitations. Gastrointestinal: No nausea, vomiting, abdominal pain, or diarrhea. Genitourinary: She does have some dysuria and frequency. No Pastor. Pulmonary: No congestion, shortness of breath, or nasal secretions. Skin: No rash. Extremities: No pain. Neurologic: No seizures or generalized fatigue. No focal weakness. PAST MEDICAL HISTORY: The patient has a past medical history of the following. The patient has a past medical history of hyperlipidemia, hypertension, history of diabetes type 2, history of bladder cancer, history abdominal pain. ALLERGIES: Codeine and ibuprofen. No antibiotic allergies. SOCIAL HISTORY: Negative for smoking, alcohol, or drug abuse. FAMILY HISTORY: Noncontributory. Negative for tuberculosis or cancer. MEDICATIONS: Upon reviewing the MAR, she is on following medications are hydralazine, atorvastatin, Rocephin, heparin, aspirin, amlodipine, atenolol, acetaminophen, Zofran, diphenhydramine, and IV fluids. Outside medications noted and reconciliated. Antibiotics Rocephin. PHYSICAL EXAMINATION: VITAL SIGNS: Temperature 98.1, pulse rate is 74, respiratory rate is 18, blood pressure 138/75, saturating 99% on room air. Pulse rate has been as high as 93. GENERAL: Alert, responsive, no acute distress. Oriented x3. HEAD AND NECK: Oral exam, no thrush. Eye exam, no icterus. Normocephalic. NECK: Supple. No JVD. HEART: Regular. No gallop or murmur. No friction rub. ABDOMEN: Soft. Positive bowel sounds. Nontender. No organomegaly. LUNGS: Clear bilaterally. No rhonchi or rales. SKIN: No rash. MUSCULOSKELETAL: No effusions. Legs are without cellulitis. PERIPHERAL VASCULAR: No cyanosis or gangrene. GENITOURINARY: No Pastor. LINE SITES: Without phlebitis. NEUROLOGIC: Intact. Nonfocal. Alert and responsive. No CVA tenderness. No septic arthritis or gangrene or cyanosis. LABORATORY DATA: Chemistry noted, creatinine 0.8. White count 12.3, hemoglobin 12.5, white count is as high as 13.4 on admission. Urinalysis had 3+ leukocyte esterase, positive nitrite, 60 to 80 white blood cells and many bacteria. Urine culture with greater than 100,000 gram negative bacilli. Blood cultures are negative. Chest x-ray showed no acute disease or active process. ASSESSMENT AND PLAN: 1. The patient has gram-negative complicated UTI with dehydration and weakness. We will continue Rocephin for gram-negative coverage. Continue Rocephin for gram-negative complicated UTI, possible sepsis, and SIRS criteria. Continue Rocephin. Check urine culture for urinary tract infection. 2. The patient has weakness. 3. Dehydration. 4. IV fluids. 5. The patient has a history of diabetes. 6. The patient has a history of hypertension. 7. Blood sugar and blood pressure treatment per primary care team. 8. Hyperlipidemia. 9. Bladder cancer. 10. Continue treatment per primary consultants. 11. Allergy to codeine, ibuprofen. 12. Social history is negative. 13. Family history is noncontributory. 14. MAR was noted. 15. Case discussed with PACHECO. Chad Swanson M.D. DR: NITIN JOB#: [id number] CC: DARLENE
[2019-05-30 04:00] VITALS: BP_SYST 126; BP_SYST 139; BP_DIAS 71; BP_DIAS 82
[2019-05-30 06:02] LABS: BASOPHILS % (AUTO) 0.8 % (0.0-2.0); EOSINOPHILS % (AUTO) 3.9 % (0.0-3.0); HEMATOCRIT 36.9 % (37.0-47.0); HEMOGLOBIN 12.8 G/DL (12.0-16.0); LYMPHOCYTES % (AUTO) 31.8 % (20.0-45.0); MEAN CORPUSCULAR VOLUME 81 FL (80-99); MONOCYTES % (AUTO) 6.5 % (1.0-10.0); NEUTROPHILS % (AUTO) 57.1 % (45.0-75.0); PLATELET COUNT 342 K/UL (150-450); RED BLOOD COUNT 4.54 M/UL (4.20-5.40); RED CELL DISTRIBUTION WIDTH 14.3 % (11.6-14.8); WHITE BLOOD COUNT 11.2 K/UL (4.8-10.8)
[2019-05-30 06:40] LABS: ANION GAP 11 mmol/L (5-15); BLOOD UREA NITROGEN 6 mg/dL (7-18); CALCIUM 9.5 MG/DL (8.5-10.1); CARBON DIOXIDE 26 MMOL/L (21-32); CHLORIDE 104 MMOL/L (98-107); CREATININE 0.9 MG/DL (0.55-1.30); SODIUM 141 MMOL/L (136-145)
--- NOTE | 2019-05-30 07:35 | NUR ---
HAND-OFF: Report given to PACHECO Salas for PACHECO White. Hand octavia report also provided. Pt in stable condition.
[2019-05-30 08:00] VITALS: BP 121/76
--- NOTE | 2019-05-30 08:07 | General Progress Note ---
Assessment/Plan Assessment/Plan: 83 YO F with HTN, HLD, DMII presenting with 4-5 day onset of worsening abdominal pain. Patient also has a hx of prior hospital admission for emphysematous cystitis. #Abdominal pain - resolved #Sepsis -improved #Urinary Tract Infection #Leukocytosis #History of emphysematous cystitis -UA significant for many bacteria, 3+ LE, >60 WBC, 2+ blood -Serum WBC: 13.4 -H/o UCx positive for Klebsiella pneumoniae in February 2019 -No evidence of lactic acidosis. -05/27 Ucx: prelim GN baccili -05/27 BCx: NGTD -H/o urine culture studies (Klebsiella pneumoniae in February 2019) -ID, Dr. Ashraf, following: cont. CTX, awaiting final Cx sensitivities #Hypokalemia -replaced -check Mg level -Continue to monitor, replace PRN #Type II DM: -Insulin Sliding Scale -Diabetic Diet. #HTN #HLD -Resume home amlodipine, atenolol and atorvastatin. #History of Bladder CA: -Outpatient follow up with urology. -No acute issues. Time spent on encounter: 36 mins, >50% on counseling, coordination of care. Time of note doesn't reflect time of encounter. Subjective Allergies: Coded Allergies: CODEINE (Verified Allergy, Mild, 10/14/10) IBUPROFEN (Unverified Allergy, Unknown, 09/03/18) Subjective F/u for UTI. No acute events overnight. Pt denies any pain, CP, SOB at this time. Objective Last 24 Hour Vital Signs Date Time Temp Pulse Resp B/P (MAP) Pulse Ox O2 Delivery O2 Flow Rate FiO2 05/30/19 04:00 98.2 80 16 126/71 (89) 95 05/29/19 23:01 97.9 77 16 137/73 (94) 97 05/29/19 21:00 Room Air 05/29/19 20:00 81 05/29/19 20:00 98.5 79 17 149/78 (101) 97 05/29/19 16:00 98.1 74 18 138/75 (96) 97 05/29/19 16:00 76 05/29/19 12:24 79 05/29/19 12:00 98.0 78 18 136/68 (90) 99 05/29/19 09:30 Room Air 05/29/19 09:02 86 141/74 05/29/19 09:02 86 141/74 Intake and Output 05/29/19 05/30/19 19:02 07:02 Intake Total 360 ml 150 ml Balance 360 ml 150 ml Intake Oral 360 ml 150 ml # Voids 2 1 # Bowel Movements 1 Laboratory Tests 05/30/19 05:00: White Blood Count 11.2H, Red Blood Count 4.54, Hemoglobin 12.8, Hematocrit 36.9L , Mean Corpuscular Volume 81, Mean Corpuscular Hemoglobin 28.2, Mean Corpuscular Hemoglobin Concent 34.6, Red Cell Distribution Width 14.3, Platelet Count 342, Mean Platelet Volume 6.2L, Neutrophils (%) (Auto) 57.1, Lymphocytes ( %) (Auto) 31.8, Monocytes (%) (Auto) 6.5, Eosinophils (%) (Auto) 3.9H, Basophils (%) (Auto) 0.8, Sodium Level 141, Potassium Level 3.0L, Chloride Level 104, Carbon Dioxide Level 26, Anion Gap 11, Blood Urea Nitrogen 6L, Creatinine 0.9, Estimat Glomerular Filtration Rate > 60, Glucose Level 120H, Calcium Level 9.5 Height (Feet): 5 Height (Inches): 5.00 Weight (Pounds): 175 Objective General: NAD, A&O x 3, sitting up in bed comfortably HEENT: NCAT, EOMi, dry MM CV: RRR, no murmurs, rubs, or gallops Pulm: CTAB, No wheezes, rhonchi, or rales, no accessory muscle usage or conversational dyspnea GI: Soft, nontender, nondistended, bowel sounds present Ext: No lower extremity edema bilaterally Skin: no rashes lesions or ulcers Irwin Betts M.D. May 30, 2019 08:07
--- NOTE | 2019-05-30 08:45 | NUR ---
NURSE NOTES: Received hand off note. Patient is awake lying semi-stephenson's in bed and resting comfortably. Denies any pain at this time. No signs of acute distress noted; AOx4; able to make needs known. Ambulates with assistance. Checked IV site; patent and flushed. No erythema, bleeding, or infiltration noted. Bedside commode easily accessible. Bed at lowest position, brakes on, siderails up x3. Call light within reach. Will continue to monitor.
[2019-05-30] MEDS ORDERED: Heparin 5000 units/ml inj SUBQ SCH (09:00)
[2019-05-30] MEDS ORDERED: Aspirin Baby 81mg ORAL SCH (09:00)
--- NOTE | 2019-05-30 10:55 | NUR ---
NURSE NOTES: Judi from Lab called to report Gram positive cocci in clusters in blood culture. Will notify
[2019-05-30] MEDS ORDERED: CEPHALEXIN500 MG ORAL (11:19)
--- NOTE | 2019-05-30 11:22 | Discharge Summary ---
Discharge Summary Hospital Course Date of Admission May 27, 2019 at 19:00 Date of Discharge Admitting Diagnosis generalized weakness, dehydration HPI Yenifer Louis is a 83 year old female who was admitted on May 27, 2019 at 19:00 for Generalized Weakness,Dehydration. S: no concerns today, denies f/c. PE: General: NAD, A&O x 3, sitting up in chair HEENT: NCAT, EOMi, dry MM CV: RRR, no murmurs, rubs, or gallops Pulm: CTAB, No wheezes, rhonchi, or rales, no accessory muscle usage or conversational dyspnea GI: Soft, nontender, nondistended, bowel sounds present Ext: No lower extremity edema bilaterally Hospital Course 83 YO F with HTN, HLD, DMII presenting with 4-5 day onset of worsening abdominal pain. Patient also has a hx of prior hospital admission for emphysematous cystitis. UA with evidence of UTI, UCx positive for E. coli. Pt given Keflex 500 mg PO BID x7 days. Pt with symptomatic improvement. Pt to be d/ c home with home health with instructions to f/u w/PCP as o/p. #Abdominal pain - resolved #Sepsis -improved #Urinary Tract Infection #Leukocytosis #History of emphysematous cystitis #Hypokalemia #Type II DM #HTN #HLD #History of Bladder CA D/C planning >30 mins. Discharge Medications New Medications: Cephalexin* (Keflex*) 500 Mg Capsule 500 MG ORAL EVERY 12 HOURS for 7 Days, #14 CAP 0 Refills Continued Medications: Amlodipine Besylate* (Amlodipine Besylate*) 10 Mg Tablet 10 MG ORAL DAILY, TAB Aspirin Ec* (Aspirin Ec*) 81 Mg Tablet.dr 81 MG ORAL DAILY for SUPPLEMENT , TAB Atenolol* (Tenormin*) 50 Mg Tablet 50 MG ORAL DAILY, TAB Atorvastatin Calcium* (Atorvastatin Calcium*) 20 Mg Tablet 10 MG ORAL BEDTIME, TAB Famotidine (Acid Home Care Rn) 20 Mg Tablet 20 MG ORAL DAILY for ULCER , TAB Gabapentin* (Gabapentin*) 300 Mg Capsule 300 MG ORAL BEDTIME for PAIN , CAP Hydrocodone Bit/Acetaminophen 10-325* (Jefferson 10-325*) 1 Each Tablet 1 TAB ORAL Q6H PRN for For Pain, #10 TAB 0 Refills PRN PAIN Memantine Hcl* (Namenda*) 10 Mg Tablet 10 MG ORAL DAILY for MEMORY , TAB Naproxen* (Naproxen*) 500 Mg Tablet 500 MG ORAL DAILY for PAIN , TAB Omeprazole (Omeprazole) 40 Mg Capsule.dr 40 MG ORAL DAILY for 30 Days, #30 CAP Potassium Chloride* (K-Dur*) 10 Meq Capsule.er 10 MEQ ORAL DAILY for Lasix therapy, #7 TAB 0 Refills Sitagliptin (Januvia) 50 Mg Tablet 50 MG ORAL DAILY for DM, TAB Discontinued Medications: [Plaquenil ] () 200 MG PO DAILY Discharge Condition Upon Discharge: stable Discharge Vital Signs Last Vital Signs Date Time Temp Pulse Resp B/P (MAP) Pulse Ox O2 Delivery O2 Flow Rate FiO2 05/30/19 08:39 82 130/68 05/30/19 04:00 98.2 16 95 05/29/19 21:00 Room Air Discharge Disposition Patient was discharged to home w/home health Irwin Betts M.D. May 30, 2019 11:22
[2019-05-30 12:00] VITALS: BP 129/77
--- NOTE | 2019-05-30 13:20 | NUR ---
DISCHARGE PLANNING PATIENT REFERRED TO [facility] T:[phone] F:[phone] CM WILL F/U Addendum: 05/30/19 at 1640 by LUIS KAISER LVN CM RECEIVED A CALL FROM [facility] ASKED BY (DONTA) IF PATIENT WAS TESTED FOR COVID-19 CM STATED NO; NO INDICATION TO TEST [facility] WILL GET BACK TO CM IF ACCEPTED
--- NOTE | 2019-05-30 14:43 | NUR ---
P.T Note: P.T evaluation completed and tx initiated. Please refer to P.T evaluation for current functional status.
[2019-05-30 16:00] VITALS: BP 128/76
--- NOTE | 2019-05-30 16:44 | NUR ---
DISCHARGE PLANNED PATIENT ACCEPTED TO [facility] T:[phone] F:[phone] NURSE WILL CALL PATIENT IN AM
--- NOTE | 2019-05-30 18:51 | NUR ---
NURSE NOTES: Patient is discharged home per MD's order via private vehicle. Salas Grayson picked patient up. IV removed, no bleeding, no infiltration noted and patient tolerated well. Patient's belonging accounted for and acknowledged, signed by patient. Patient is in astable condition.
[2019-05-30] MEDS ORDERED: cefTRIAXone 1 GM in NS 55 ML IVPB SCH (20:00)
== END 2019-05-30 18:30 | disposition home health service (06) | DRG 872 ==
LOC: EDBD 17:45 → EMR 18:03 → 2E 19:00 → EDBEDREQSVC 05-28 04:16 → EDBEDREQ 05-28 21:30 → 3E 05-29 23:07
DX: A41.9 Sepsis, unspecified organism (principal); N39.0 Urinary tract infection, site not specified; E87.6 Hypokalemia; Z88.6 Allergy status to analgesic agent; E11.9 Type 2 diabetes mellitus without complications; I10 Essential (primary) hypertension; E78.5 Hyperlipidemia, unspecified; Z85.51 Personal history of malignant neoplasm of bladder; B96.89 Other specified bacterial agents as the cause of diseases classified elsewhere; E86.0 Dehydration
CPT/HCPCS: 36415; 71045; 80048; 80053; 81003; 82550; 82553; 83605; 83735; 83880; 84484; 85025; 85610; 85730; 86850; 86900; 86901; 87040; 87086; 87181; 93005; 96365; 96375; 99285; J8499